=== PATIENT | female | born 1960 | race Caucasian/White ===

== ENCOUNTER → 2019-05-29 | Outpatient (CLI) | payer OTHER ==
[2019-05-29 07:31] LABS: Urine WBC None Seen /hpf (0 - 5)
[2019-05-29 07:35] LABS: Basophils # (auto) 0 uL; Basophils % (auto) 0.8 % (0.0-2.0); Eosinophils # (auto) 0.2 uL; Eosinophils % (auto) 5.3 % (0.0-7.0); Hematocrit 40.2 % (36.0-46.0); Hemoglobin 13.1 g/dL (12.2-16.2); Lymphocytes # (auto) 1.2 uL; Lymphocytes % (auto) 25.8 % (10.0-50.0); Mean Corpuscular Hemoglobin 27.9 pg (28.0-32.0); Mean Corpuscular Hgb Conc. 32.5 g/dL (32.0-36.0); Mean Corpuscular Volume 85.7 fL (80.0-100.0); Monocytes # (auto) 0.4 uL; Monocytes % (auto) 8.7 % (0.0-12.0); Neutrophils # (auto) 2.7 uL; Neutrophils % (auto) 59.4 % (37.0-80.0); Nucleated Red Blood Cells % 0.1 %; Platelet Count (auto) 224 10^3/uL (140-450); Red Blood Cells 4.69 10^6/uL (4.0-5.20); Red Cell Distribution Width 16.4 % (11.8-14.3); White Blood Cell 4.6 10^3/uL (4.4-10.8)
[2019-05-29 07:58] LABS: Urine Bacteria NONE SEEN /hpf (None Seen); Urine Blood Negative /uL (Negative)
[2019-05-29 08:36] LABS: Albumin 3.7 g/dL (3.4-5.0); BUN/Creatinine Ratio 16.3; Calcium 8.8 mg/dL (8.5-10.1); Potassium 3.7 mmol/L (3.5-5.1)
[2019-05-29 08:38] LABS: Bilirubin, Total 0.4 mg/dL (0.2-1.0); Total Protein 7.5 g/dL (6.4-8.2)
== END | disposition home or self-care (01) ==
LOC: LAB 07:11
PROVIDERS: ATTEND Internal Medicine Nephrology
DX: I10 Essential (primary) hypertension (principal); I27.20 Pulmonary hypertension, unspecified
CPT/HCPCS: 36415; 80053; 80061; 81001; 84439; 84443; 85025

== ENCOUNTER 2019-07-20 11:38 | Emergency (ER) | payer OTHER ==
[~2019-07-20] VITALS: Ht 160 cm; Wt 63.5 kg
[2019-07-20] MEDS ORDERED: ONDANSETRON HCL 4 MG/2 ML VIAL IV ONE (12:45)
[2019-07-20] MEDS ORDERED: MORPHINE SULF INJ 2 MG/ML SYRINGE 1ML IV ONE ×2 (12:45→16:00)
[2019-07-20 13:44] LABS: Basophils # (auto) 0 uL; Basophils % (auto) 0.3 % (0.0-2.0); Eosinophils # (auto) 0.1 uL; Eosinophils % (auto) 1.4 % (0.0-7.0); Hematocrit 30.8 % (36.0-46.0); Hemoglobin 10.3 g/dL (12.2-16.2); Lymphocytes # (auto) 0.6 uL; Lymphocytes % (auto) 10.5 % (10.0-50.0); Mean Corpuscular Hemoglobin 29.3 pg (28.0-32.0); Mean Corpuscular Hgb Conc. 33.5 g/dL (32.0-36.0); Mean Corpuscular Volume 87.6 fL (80.0-100.0); Monocytes # (auto) 0.5 uL; Monocytes % (auto) 8.4 % (0.0-12.0); Neutrophils # (auto) 4.7 uL; Neutrophils % (auto) 79.4 % (37.0-80.0); Platelet Count (auto) 254 10^3/uL (140-450); Red Blood Cells 3.51 10^6/uL (4.0-5.20); Red Cell Distribution Width 16.3 % (11.8-14.3); White Blood Cell 5.9 10^3/uL (4.4-10.8)
[2019-07-20 14:00] LABS: Calcium 8.2 mg/dL (8.5-10.1); Magnesium 2.2 mg/dL (1.6-2.6); Potassium 3.8 mmol/L (3.5-5.1)
[2019-07-20 14:03] LABS: BUN/Creatinine Ratio 12.3; Bilirubin, Total 0.4 mg/dL (0.2-1.0); Total Protein 6.6 g/dL (6.4-8.2)
[2019-07-20 15:52] LABS: Urine Bacteria NONE SEEN /hpf (None Seen); Urine Blood Negative /uL (Negative); Urine Specific Gravity 1.013 (1.001-1.035); Urine WBC 1 /hpf (0 - 5)
[2019-07-20] MEDS ORDERED: PROMETHAZINE HCL 25 MG/ML 1ML IV ONE (16:00)
[2019-07-20 20:00] VITALS: BP 83/45
== END 2019-07-20 20:29 | disposition home or self-care (01) ==
LOC: ER 11:38
DX: M62.830 Muscle spasm of back (principal); N83.8 Other noninflammatory disorders of ovary, fallopian tube and broad ligament; I27.20 Pulmonary hypertension, unspecified
CPT/HCPCS: 36415; 71045; 72148; 74176; 80053; 81001; 83735; 85025; 94761; 96374; 96375; 96376; 99284; J2270; J2405; J2550

== ENCOUNTER → 2019-07-24 | Outpatient (CLI) | payer OTHER ==
[2019-07-24 15:57] LABS: Basophils # (auto) 0 uL; Basophils % (auto) 0.3 % (0.0-2.0); Eosinophils # (auto) 0.1 uL; Eosinophils % (auto) 1.1 % (0.0-7.0); Hematocrit 33.4 % (36.0-46.0); Hemoglobin 10.9 g/dL (12.2-16.2); Lymphocytes # (auto) 0.8 uL; Lymphocytes % (auto) 12.8 % (10.0-50.0); Mean Corpuscular Hemoglobin 28.9 pg (28.0-32.0); Mean Corpuscular Hgb Conc. 32.8 g/dL (32.0-36.0); Mean Corpuscular Volume 88.1 fL (80.0-100.0); Monocytes # (auto) 0.5 uL; Monocytes % (auto) 7.8 % (0.0-12.0); Neutrophils # (auto) 4.6 uL; Platelet Count (auto) 318 10^3/uL (140-450); Red Blood Cells 3.79 10^6/uL (4.0-5.20); Red Cell Distribution Width 16.4 % (11.8-14.3)
[2019-07-24 16:20] LABS: Albumin 3.3 g/dL (3.4-5.0); Calcium 8.8 mg/dL (8.5-10.1); Potassium 3.8 mmol/L (3.5-5.1)
[2019-07-24 16:28] LABS: BUN/Creatinine Ratio 11.1; Bilirubin, Total 0.4 mg/dL (0.2-1.0); Total Protein 7.4 g/dL (6.4-8.2)
== END | disposition home or self-care (01) ==
LOC: LAB 15:24
PROVIDERS: ATTEND Internal Medicine Hematology & Oncology
DX: N83.8 Other noninflammatory disorders of ovary, fallopian tube and broad ligament (principal)
CPT/HCPCS: 36415; 80053; 85025; 86304

== ENCOUNTER → 2019-08-24 | Outpatient (CLI) | payer OTHER ==
[2019-08-24 11:00] LABS: Basophils % (manual) 0 (0.0-2.0); Blast Cells 0; Metamyelocytes % 0; Myelocytes % 0; Promyelocytes % 0; Reactive Lymphocytes 0
[2019-08-24 11:18] LABS: Hematocrit 34.6 % (36.0-46.0); Hemoglobin 11.3 g/dL (12.2-16.2); Mean Corpuscular Hgb Conc. 32.7 g/dL (32.0-36.0); Mean Corpuscular Volume 85.5 fL (80.0-100.0); Platelet Count (auto) 321 10^3/uL (140-450); Red Blood Cells 4.04 10^6/uL (4.0-5.20); Red Cell Distribution Width 15.4 % (11.8-14.3); White Blood Cell 4.3 10^3/uL (4.4-10.8)
[2019-08-24 11:42] LABS: Albumin 3.2 g/dL (3.4-5.0); Potassium 4.3 mmol/L (3.5-5.1)
[2019-08-24 11:45] LABS: BUN/Creatinine Ratio 9.7; Bilirubin, Total 0.6 mg/dL (0.2-1.0); Total Protein 7.3 g/dL (6.4-8.2)
[2019-08-24 11:47] LABS: Urine Bacteria NONE SEEN /hpf (None Seen); Urine Blood Negative /uL (Negative); Urine Mucus FEW (None Seen); Urine Specific Gravity 1.019 (1.001-1.035); Urine WBC 1 /hpf (0 - 5)
[2019-08-24 13:08] LABS: Band Neutrophils % (manual) 1; Lymphocytes % (manual) 23 (10.0-50.0); Monocytes % (manual) 6 (0-12)
[2019-08-24 13:09] LABS: Eosinophils % (manual) 2 (0-7)
== END | disposition home or self-care (01) ==
LOC: LAB 10:07
PROVIDERS: ATTEND Internal Medicine Nephrology
DX: R50.9 Fever, unspecified (principal); R00.0 Tachycardia, unspecified
CPT/HCPCS: 36415; 80053; 81001; 83605; 85007; 85025; 85027; 87040; 87086

== ENCOUNTER → 2019-10-01 | Outpatient (CLI) | payer OTHER ==
[~2019-10-01] MED LIST: AMLO5TAB15 PO; ESOM40CA39 PO; MACI1TAB2 PO; ROSU20TA14 PO; TADA5TAB11 PO
[2019-10-01 08:10] LABS: Basophils # (auto) 0 uL; Basophils % (auto) 0.3 % (0.0-2.0); Eosinophils # (auto) 0.1 uL; Eosinophils % (auto) 1.7 % (0.0-7.0); Hematocrit 34.1 % (36.0-46.0); Hemoglobin 11.1 g/dL (12.2-16.2); Lymphocytes % (auto) 20.8 % (10.0-50.0); Mean Corpuscular Hemoglobin 27.6 pg (28.0-32.0); Mean Corpuscular Hgb Conc. 32.6 g/dL (32.0-36.0); Mean Corpuscular Volume 84.5 fL (80.0-100.0); Monocytes # (auto) 0.5 uL; Monocytes % (auto) 10.1 % (0.0-12.0); Neutrophils # (auto) 3.2 uL; Neutrophils % (auto) 67.1 % (37.0-80.0); Platelet Count (auto) 211 10^3/uL (140-450); Red Blood Cells 4.03 10^6/uL (4.0-5.20); Red Cell Distribution Width 16.4 % (11.8-14.3); White Blood Cell 4.8 10^3/uL (4.4-10.8)
[2019-10-01 09:26] LABS: Potassium 3.6 mmol/L (3.5-5.1)
[2019-10-01 09:36] LABS: Albumin 3.3 g/dL (3.4-5.0); BUN/Creatinine Ratio 10.3; Bilirubin, Total 0.4 mg/dL (0.2-1.0); Calcium 9.5 mg/dL (8.5-10.1); Total Protein 7.8 g/dL (6.4-8.2)
== END | disposition home or self-care (01) ==
LOC: LAB 07:37
PROVIDERS: ATTEND Internal Medicine Nephrology
DX: R65.10 Systemic inflammatory response syndrome (SIRS) of non-infectious origin without acute organ dysfunction (principal)
CPT/HCPCS: 36415; 80053; 85025; 87040

== ENCOUNTER 2019-10-02 18:22 | Emergency (ER) | payer OTHER ==
[~2019-10-02] VITALS: Ht 160 cm; Wt 62.1 kg
[~2019-10-02 18:22] MED LIST changes: -AMLO5TAB15 PO
[2019-10-02] MEDS ORDERED: SODIUM CHLORIDE 0.9% 1,000 ML IV ONE ×2 (19:21)
[2019-10-02 19:25] LABS: Basophils # (auto) 0 uL; Basophils % (auto) 0.5 % (0.0-2.0); Eosinophils # (auto) 0.1 uL; Eosinophils % (auto) 1.3 % (0.0-7.0); Hematocrit 34.1 % (36.0-46.0); Lymphocytes # (auto) 1.1 uL; Lymphocytes % (auto) 15.5 % (10.0-50.0); Mean Corpuscular Hemoglobin 27.4 pg (28.0-32.0); Mean Corpuscular Hgb Conc. 32.4 g/dL (32.0-36.0); Mean Corpuscular Volume 84.5 fL (80.0-100.0); Monocytes # (auto) 0.6 uL; Monocytes % (auto) 7.9 % (0.0-12.0); Neutrophils # (auto) 5.3 uL; Neutrophils % (auto) 74.8 % (37.0-80.0); Platelet Count (auto) 264 10^3/uL (140-450); Red Blood Cells 4.03 10^6/uL (4.0-5.20); Red Cell Distribution Width 16.9 % (11.8-14.3); White Blood Cell 7.1 10^3/uL (4.4-10.8)
[2019-10-02] MEDS ORDERED: PIPERACILLIN-TAZOB 3.375GM 100 ML IV ONE (19:30)
[2019-10-02 19:42] LABS: Albumin 3.3 g/dL (3.4-5.0); Potassium 3.2 mmol/L (3.5-5.1)
[2019-10-02 19:44] LABS: BUN/Creatinine Ratio 14.1
[2019-10-02 19:46] LABS: Bilirubin, Total 0.4 mg/dL (0.2-1.0); Total Protein 7.7 g/dL (6.4-8.2)
[2019-10-02] MEDS ORDERED: POTASSIUM EFFERVESENT TAB 25 MEQ PO ONE ×2 (21:00→21:15)
[2019-10-02] MEDS ORDERED: POTASSIUM EFFERVESENT TAB 25 MEQ ONE ×2 (21:08)
[2019-10-02 21:14] VITALS: BP 112/74
[2019-10-04] MEDS ORDERED: AMLO5TAB15 PO (05:09)
[2019-10-04] MEDS ORDERED: MACI1TAB2 PO (05:09)
[2019-10-04] MEDS ORDERED: TADA5TAB11 PO (05:11)
== END 2019-10-02 21:30 | disposition home or self-care (01) ==
LOC: ER 18:22
DX: E87.6 Hypokalemia (principal); E86.0 Dehydration; E46 Unspecified protein-calorie malnutrition; I10 Essential (primary) hypertension
CPT/HCPCS: 36415; 71046; 80053; 83605; 85025; 87040

== ENCOUNTER → 2019-11-22 | Outpatient (CLI) | payer OTHER ==
[~2019-11-22] MED LIST changes: +AMLO5TAB15 PO; +FERR200T3 PO
== END | disposition home or self-care (01) ==
LOC: XYW 07:32
PROVIDERS: ATTEND Internal Medicine
DX: I27.0 Primary pulmonary hypertension (principal)
CPT/HCPCS: 93306

== ENCOUNTER → 2019-11-27 | Outpatient (CLI) | payer OTHER ==
[2019-11-27 14:52] LABS: Basophils # (auto) 0.1 10 ^3/uL (0-0.2); Eosinophils # (auto) 0.2 10 ^3/uL (0-0.8); Lymphocytes # (auto) 1.5 10 ^3/uL (0.4-5.4); Mean Corpuscular Volume 82.8 fL (80.0-100.0); White Blood Cell 8.2 10^3/uL (4.4-10.8)
[2019-11-27 14:54] LABS: Basophils % (auto) 0.8 % (0.0-2.0); Eosinophils % (auto) 2.2 % (0.0-7.0); Hematocrit 36.5 % (36.0-46.0); Hemoglobin 11.9 g/dL (12.2-16.2); Lymphocytes % (auto) 18.7 % (10.0-50.0); Mean Corpuscular Hemoglobin 27.1 pg (28.0-32.0); Mean Corpuscular Hgb Conc. 32.8 g/dL (32.0-36.0); Monocytes # (auto) 0.7 10 ^3/uL (0-1.3); Monocytes % (auto) 8.7 % (0.0-12.0); Neutrophils # (auto) 5.7 10 ^3/uL (1.6-8.6); Neutrophils % (auto) 69.6 % (37.0-80.0); Platelet Count (auto) 307 10^3/uL (140-450); Red Cell Distribution Width 16.8 % (11.8-14.3)
[2019-11-27 15:12] LABS: Albumin 3.9 g/dL (3.4-5.0); BUN/Creatinine Ratio 16.3; Calcium 9.1 mg/dL (8.5-10.1); Potassium 3.3 mmol/L (3.5-5.1)
[2019-11-27 15:15] LABS: Bilirubin, Total 0.4 mg/dL (0.2-1.0)
== END | disposition home or self-care (01) ==
LOC: LAB 14:30
PROVIDERS: ATTEND Internal Medicine Nephrology
DX: I36.8 Other nonrheumatic tricuspid valve disorders (principal)
CPT/HCPCS: 36415; 80053; 85025; 87040

== ENCOUNTER → 2020-01-28 | Outpatient (CLI) | payer OTHER | END | disposition home or self-care (01) | LOC: XY 10:56 | PROVIDERS: ATTEND Internal Medicine Nephrology | DX: I70.203 Unspecified atherosclerosis of native arteries of extremities, bilateral legs (principal) | CPT/HCPCS: 93925 ==

== ENCOUNTER → 2022-08-10 | Day surgery (SDC) | payer OTHER ==
[2022-08-06 14:47] LABS: Basophils # (auto) 0.1 10 ^3/uL (0-0.2); Eosinophils # (auto) 0.1 10 ^3/uL (0-0.8); Hemoglobin 13.9 g/dL (12.2-16.2); Mean Corpuscular Hemoglobin 26.5 pg (28.0-32.0); Mean Corpuscular Hgb Conc. 31.9 g/dL (32.0-36.0); Neutrophils # (auto) 3.1 10 ^3/uL (1.6-8.6)
[2022-08-06 14:49] LABS: Eosinophils % (auto) 1.8 % (0.0-7.0); Hematocrit 43.5 % (36.0-46.0); Lymphocytes # (auto) 2.1 10 ^3/uL (0.4-5.4); Lymphocytes % (auto) 33.3 % (10.0-50.0); Mean Corpuscular Volume 83.1 fL (80.0-100.0); Monocytes # (auto) 0.9 10 ^3/uL (0-1.3); Monocytes % (auto) 13.8 % (0.0-12.0); Neutrophils % (auto) 50.1 % (37.0-80.0); Red Blood Cells 5.23 10^6/uL (4.0-5.20); Red Cell Distribution Width 18.6 % (11.8-14.3); White Blood Cell 6.2 10^3/uL (4.4-10.8)
[2022-08-06 14:54] LABS: INR 1.08 (0.9-1.15)
[2022-08-06 15:20] LABS: Albumin 4.2 g/dL (3.4-5.0); Potassium 3.7 mmol/L (3.5-5.1)
[2022-08-06 15:25] LABS: BUN/Creatinine Ratio 16.3; Bilirubin, Total 0.7 mg/dL (0.2-1.0); Calcium 9.5 mg/dL (8.5-10.1); Total Protein 8.4 g/dL (6.4-8.2)
[~2022-08-10] VITALS: Ht 160 cm; Wt 64.9 kg
[~2022-08-10] MED LIST changes: +AMLO-489 PO; -AMLO5TAB15 PO; +ASPI81CH59 PO; +FURO1TAB33 PO; +MULT-1018 OR; +POTA1TAB61 PO; +SODIUM CHLORIDE LOCK 10 ML ONE
[2022-08-10] MEDS: diphenhdrAMINE HCL 50 MG/1 ML VL ONE ×2 (11:15→11:18)
[2022-08-10] MEDS: fentaNYL CITRATE 100 MCG/2 ML VL ONE ×3 (11:15→11:25)
[2022-08-10] MEDS: MIDAZOLAM HCL 5 MG/ML-1ML VIAL ONE ×3 (11:15→11:25)
[2022-08-10 12:16] VITALS: BP 108/74
== END | disposition home or self-care (01) ==
LOC: GI 09:44
PROVIDERS: ATTEND Internal Medicine Gastroenterology
DX: R19.4 Change in bowel habit (principal); Z80.0 Family history of malignant neoplasm of digestive organs; K64.0 First degree hemorrhoids; K57.30 Diverticulosis of large intestine without perforation or abscess without bleeding; D12.3 Benign neoplasm of transverse colon; Z20.822 Contact with and (suspected) exposure to COVID-19
CPT/HCPCS: 36415; 45380; 45385; 80053; 85025; 85610; 85730; 88305; A4648; J1200; J2250; J3010; J7030; U0003

== ENCOUNTER 2025-08-16 10:00 | Inpatient (IN) | payer OTHER ==
[~2025-08-16] VITALS: Ht 160 cm; Wt 66.6 kg
[2025-08-16] VITALS (9 sets, daily range): BP systolic 110–138; BP diastolic 73–87; PULSE 91–102; RESP 17–23; TEMP 97.4–98.4; O2SAT 92–95
[~2025-08-16 10:00] MED LIST changes: -AMLO-489 PO; +AMLO1TAB22 PO; +POTA-215 PO; -POTA1TAB61 PO; -SODIUM CHLORIDE LOCK 10 ML ONE
--- NOTE | 2025-08-16 10:22 | ECG ---
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
--- NOTE | 2025-08-16 10:35 | ED.PDOC ---
SOB-HPI HPI Comments 65-year-old female with primary history of pulmonary hypertension, and to the ED for chief complaint of shortness of breath associated with fevers, productive cough and clear phlegm sputum that started 2-3 days ago. Patient reports symptoms have worsened today and developed right-sided chest pain that is nonradiating, constant and described as achy. Patient present with a saturation level of 87% on room air, and was placed on 6 L of nasal cannula with a saturation improvement to 94%. Patient states shortness of breath worsens on exertion and when lying flat. She denies any leg swelling, nausea, diarrhea, abdominal pain, or back pain. Chief Complaint: Shortness of Breath Time Seen by MD: 10:28 Primary Care Provider: ameena Ramos notes: Nurses Notes, Medications, Allergies Information Source: Patient Mode of Arrival: Ambulatory Severity: Moderate Timing: Days (2-3) Context: At Rest PE Risk Factors: None History of: Other Modifying Factors: Nothing Associated Signs and Symptoms: Fever, Cough, Nasal Congestion If cough with SOB: Productive, Clear Past Medical History PAST MEDICAL HISTORY: HTN Surgical History: APPLICATION SECURITY ENGINEER History: No Pertinent APPLICATION SECURITY ENGINEER History Family History Family History: Family hx of Cancer, Family hx of HTN Family History (Other): Father had pancreatic cancer Mother has colon cancer Social History Smoker: Non-Smoker Alcohol: Rarely Drugs: Denies Drug Use Lives In: Home Constitutional: reports: fever; denies: chills, diaphoresis, fatigue, malaise, sweats, weakness, others EENTM: denies: blurred vision, double vision, ear bleeding, ear discharge, ear drainage, ear pain, ear ringing, eye pain, eye redness, hearing loss, mouth pain, mouth swelling, nasal discharge, nose bleeding, nose congestion, nose pain, photophobia, tearing, throat pain, throat swelling, voice changes, others Respiratory: reports: cough, SOB at rest, shortness of breath, SOB with excertion; denies: hemoptysis, orthopnea, stridor, wheezing, others Cardiovascular: denies: chest pain, dizzy spells, diaphoresis, Dyspnea on ex ertion, edema, irregular heart beat, left arm pain, lightheadedness, palpitations, PND, syncope, others Gastrointestinal: denies: abdomen distended, abdominal pain, blood streaked bowels, constipated, diarrhea, dysphagia, difficulty swallowing, hematemesis, melena, nausea, poor appetite, poor fluid intake, rectal bleeding, rectal pain, vomiting, others Genitourinary: denies: abnormal vagina bleeding, burning, dyspareunia, dysuria, flank pain, frequency, hematuria, incontinence, pain, , vagina discharge, urgency, others Neurological: denies: dizziness, fainting, headache, left sided numbness, left sided weakness, numbness, paresthesia, pre-existing deficit, right sided numbness, right sided weakness, seizure, speech problems, tingling, tremors, weakness, others Musculoskeletal: denies: back pain, gout, joint pain, joint swelling, muscle pain, muscle stiffness, neck pain, others Integumetry: denies: bruises, change in color, change in hair/nails, dryness, laceration, lesions, lumps, rash, wounds, others Allergic/Immunocompromised: denies: Difficulty Healing, Frequent Infections, Hives, Itching, others Hematologic/Lymphatic: denies: anemia, blood clots, easy bleeding, easy bruising, swollen glands, others Endocrine: denies: excessive hunger, excessive sweating, excessive thirst, excessive urination, flushing, intolerance to cold, intolerance to heat, unexplained weight gain, unexplained weight loss, others Psychiatric: denies: anxiety, bipolar disorder, depression, hopeless, panic disorder, schizophrenia, sleepless, suicidal, others All Other Systems: Reviewed and Negative Physical Exam General Appearance: Severe Distress HEENT: Normal ENT Inspection, Pharynx Normal, TMs Normal Neck: Full Range of Motion, Non-Tender, Normal, Normal Inspection Respiratory: Accessory Muscle Use, Respiratory Distress, Wheezing Cardiovascular: No Edema, No JVD, No Murmur, No Gallop, Normal Peripheral Pulses, Regular Rate/Rhythm Breast Exam: Deferred Gastrointestinal: No Organomegaly, Non Tender, No Pulsatile Mass, Normal Bowel Sounds, Soft Genitalia: Deferred Pelvic: Deferred Rectal: Deferred Extremities: No calf tenderness, No pedal edema Musculoskeletal : Apperance: Normal Neurologic: Alert, No Motor Deficits, No Sensory Deficits Cerebellar Function: NOT DONE Reflexes: NOT DONE Skin: Dry, Normal Color, Warm Peripheral Pulses: 3+ Radial (R), 3+ Radial (L) Lymphatic: No Adenopathy Was a procedure done? Was a procedure done?: No Differential Dx Differential Diagnosis: Anxiety, Asthma, Bronchitis, CHF, COPD, Hypertension, Hyperventilation, Respiratory Distress, URI X-Ray, Labs, Meds, VS Vital Signs Date Time Temp Pulse Resp B/P (MAP) Pulse Ox O2 Delivery O2 Flow Rate FiO2 08/16/25 11:46 20 95 Nasal Cannula* 6 44 08/16/25 11:39 136/77 08/16/25 10:50 94 Nasal Cannula* 6 44 08/16/25 10:33 101 23 94 Nasal Cannula* 6 44 08/16/25 10:33 98.4 101 23 138/87 (104) 94 98.4 08/16/25 10:14 104 08/16/25 10:04 98.0 111 24 155/92 88 98.0 Lab Test 08/16/25 10:46 08/16/25 10:45 08/16/25 10:41 Range/Units Influenza Type A Antigen Negative Negative Influenza Type B Antigen Negative Negative SARS-CoV-2 Antigen (Rapid) Negative NEGATIVE White Blood Count 7.7 4.4-10.8 10^3/uL Red Blood Count 4.67 4.0-5.20 10^6/uL Hemoglobin 14.6 12.2-16.2 g/dL Hematocrit 43.0 36.0-46.0 % Mean Corpuscular Volume 92.0 80.0-100.0 fL Mean Corpuscular Hemoglobin 31.3 28.0-32.0 pg Mean Corpuscular Hemoglobin Concent 34.1 32.0-36.0 g/dL Red Cell Distribution Width 16.0 H 11.8-14.3 % Platelet Count 213 140-450 10^3/uL Mean Platelet Volume 7.5 6.9-10.8 fL Neutrophils (%) (Auto) 76.3 37.0-80.0 % Lymphocytes (%) (Auto) 10.7 10.0-50.0 % Monocytes (%) (Auto) 12.4 H 0.0-12.0 % Eosinophils (%) (Auto) 0.1 0.0-7.0 % Basophils (%) (Auto) 0.5 0.0-2.0 % Neutrophils # (Auto) 5.9 1.6-8.6 10 ^3/uL Lymphocytes # (Auto) 0.8 0.4-5.4 10 ^3/uL Monocytes # (Auto) 1.0 0-1.3 10 ^3/uL Eosinophils # (Auto) 0 0-0.8 10 ^3/uL Basophils # (Auto) 0 0-0.2 10 ^3/uL Nucleated Red Blood Cells 0.0 % Sodium Level 136 136-145 mmol/L Potassium Level 3.6 3.5-5.1 mmol/L Chloride Level 102 98-107 mmol/L Carbon Dioxide Level 18 L 20-31 mmol/L Anion Gap 16 H 5-15 Blood Urea Nitrogen 6 L 9-23 mg/dL Creatinine 0.66 0.550-1.02 mg/dL Glomerular Filtration Rate Calc 98 >90 mL/min BUN/Creatinine Ratio 9.1 L 10.0-20.0 Serum Glucose 104 74-106 mg/dL Lactic Acid Level 1.3 0.4-2.0 mmol/L Calcium Level 9.2 8.7-10.4 mg/dL Total Bilirubin 1.6 H 0.2-1.0 mg/dL Aspartate Amino Transferase (AST) 30 13-40 U/L Alanine Aminotransferase (ALT) 23 7-40 U/L Alkaline Phosphatase 167 H 46-116 U/L Troponin I High Sensitivity 10 </=34 ng/L Total Protein 6.6 5.7-8.2 g/dL Albumin 4.1 3.2-4.8 g/dL Current Medications Medications (Trade) Dose Ordered Sig/Solomon Route Start Time Stop Time Status Last Admin Methylprednisolone Sodium Succinate (Solu Medrol) 125 mg ONCE ONCE IV 08/16/25 11:30 08/16/25 11:31 DC 08/16/25 11:40 Furosemide (Lasix Injection) 40 mg ONCE ONCE IV 08/16/25 11:30 08/16/25 11:31 DC 08/16/25 11:39 Magnesium Sulfate/ Dextrose 100 ml @ 100 mls/hr ONCE ONCE IV 08/16/25 11:30 08/16/25 12:29 DC 08/16/25 11:38 Albuterol (Ventolin Medneb) 5 mg ONCE ONCE NEB 08/16/25 11:30 08/16/25 11:31 DC 08/16/25 11:46 Ipratropium Galt (Atrovent Medneb) 0.5 mg ONCE ONCE NEB 08/16/25 11:30 08/16/25 11:31 DC 08/16/25 11:45 Patient alert. Came in because of shortness a breath. Has been here before. Vitals stable. Answering questions. Placed on oxygen. Reviewed her previous visit. Establish intravenous access. Was given steroid. Was given Lasix pain Was given breathing treatment. Was given magnesium. Explained to the patient. Continue monitoring. Time of 1ST Reevaluation: 10:35 Reevaluation 1ST: Unchanged Patient Education/Counseling: Diagnosis, Treatment, Prognosis Family Education/Counseling: No Family Present SEPSIS Sepsis Screen Date sepsis recognized/suspect: Aug 16, 2025 Time Sepsis recognized/suspect: 100 Recent Procedure: No On Antibiotic Therapy: No Respiratory Rate >20: Yes Heart Rate >90: Yes Temp<36 C (96.8 F) or >38.3 C: No SBP <90 or MAP <65 mmHG: No New Acute Mental Status Change: No Is the patient on CPAP, BIPAP,: No Physician Orders Chest Portable (08/16/25 10:31) Blood Culture (08/16/25 10:38) Vital Signs Date Time Temp Pulse Resp B/P (MAP) Pulse Ox O2 Delivery O2 Flow Rate FiO2 08/16/25 11:46 20 95 Nasal Cannula* 6 44 08/16/25 11:39 136/77 08/16/25 10:50 94 Nasal Cannula* 6 44 08/16/25 10:33 101 23 94 Nasal Cannula* 6 44 08/16/25 10:33 98.4 101 23 138/87 (104) 94 98.4 08/16/25 10:14 104 08/16/25 10:04 98.0 111 24 155/92 88 98.0 Laboratory Tests Test 08/16/25 10:41 Lactic Acid Level 1.3 mmol/L (0.4-2.0) White Blood Count 7.7 10^3/uL (4.4-10.8) Medications Medications Dose Ordered Sig/Solomon Route Start Time Stop Time Status Last Admin Dose Admin Albuterol 5 mg ONCE ONCE NEB 08/16/25 11:30 08/16/25 11:31 DC 08/16/25 11:46 Furosemide 40 mg ONCE ONCE IV 08/16/25 11:30 08/16/25 11:31 DC 08/16/25 11:39 Ipratropium Galt 0.5 mg ONCE ONCE NEB 08/16/25 11:30 08/16/25 11:31 DC 08/16/25 11:45 Magnesium Sulfate/ Dextrose 100 ml @ 100 mls/hr ONCE ONCE IV 08/16/25 11:30 08/16/25 12:29 DC 08/16/25 11:38 Methylprednisolone Sodium Succinate 125 mg ONCE ONCE IV 08/16/25 11:30 08/16/25 11:31 DC 08/16/25 11:40 Departure 1 Departure Time of Disposition: 12:55 Impression: Primary Impression: Acute respiratory failure Qualified Codes: J96.01 - Acute respiratory failure with hypoxia Additional Impression: Pneumonitis Disposition: ADMITTED INPATIENT Admit to: Med Surg Condition: Guarded Critical Care Note Critical Care Time?: Yes (90 min-critical care time only) Stability Stability form required: No Heart Score Heart Score: Heart Score Response (Comments) Value History Slightly Suspicious 0 EKG Normal 0 Age 45-64 1 Risk Factors >3 or Hx ASHD 2 Troponin Normal limit 0 Total 3 I personally scribed for LUCY ACOSTA MD ([email or web address]) on 08/16/25 at 10:35. Electronically submitted by Kasey Grace ([facility]). LUCY ACOSTA MD Aug 16, 2025 10:35
[2025-08-16 10:59] LABS: Hematocrit 43.0 % (36.0-46.0); Hemoglobin 14.6 g/dL (12.2-16.2); Mean Corpuscular Hemoglobin 31.3 pg (28.0-32.0); Mean Corpuscular Volume 92.0 fL (80.0-100.0); Nucleated Red Blood Cells % 0.0 %
--- NOTE | 2025-08-16 11:08 | DVH ---
XY CHEST PORTABLE, HISTORY: shortness of breath COMPARISON: None None TECHNICAL DATA: 1 view of the chest was obtained. FINDINGS: Lines and tubes: None Cardiomediastinal silhouette: normal Pulmonary vasculature: normal Lung expansion: Right basilar airspace opacity could be pneumonia. Lung airspace: normal Lung interstitium: normal Pleura: normal Pneumothorax: no Bones: Unremarkable Other: no IMPRESSION: Right basilar airspace opacity could be pneumonia.
[2025-08-16 11:24] LABS: Alanine Aminotransferase 23 U/L (7-40); Albumin 4.1 g/dL (3.2-4.8); Anion Gap 16 (5-15); BUN/Creatinine Ratio 9.1 (10.0-20.0); Calcium 9.2 mg/dL (8.7-10.4); Chloride 102 mmol/L (98-107); Glucose 104 mg/dL (74-106); Potassium 3.6 mmol/L (3.5-5.1); Sodium 136 mmol/L (136-145); Total Protein 6.6 g/dL (5.7-8.2)
[2025-08-16 11:34] LABS: Alkaline Phosphatase 167 U/L (46-116); Bilirubin, Total 1.6 mg/dL (0.2-1.0); Blood Urea Nitrogen 6 mg/dL (9-23); Carbon Dioxide 18 mmol/L (20-31)
[2025-08-16] MEDS: MAGNESIUM SULFATE 1GM/100ML 100 ML IV ONE (11:38)
[2025-08-16] MEDS: FUROSEMIDE 40 MG/4 ML VIAL IV ONE ×2 (11:39→18:00)
[2025-08-16] MEDS: methylPREDNISolone SOD SUCC 125 MG/2 ML VL IV ONE (11:40)
[2025-08-16 11:42] LABS: COVID19 ANTIGEN SOFIA FIA NEGATIVE (NEGATIVE)
[2025-08-16] MEDS: IPRATROPIUM BROM 0.5 MG/2.5ML INH SOL NEB ONE (11:45)
[2025-08-16] MEDS: ALBUTEROL SULF 2.5 MG/0.5ML(0.5%) NEB SOLN NEB ONE (11:46)
[2025-08-16] MEDS ORDERED: ONDANSETRON HCL 4 MG/2 ML VIAL IV PRN (14:15)
[2025-08-16] MEDS ORDERED: ACETAMINOPHEN 325 MG TAB PO PRN (14:15)
[2025-08-16] MEDS ORDERED: DOCUSATE SOD 100 MG CAP PO PRN (14:15)
--- NOTE | 2025-08-16 15:03 | DVHHP2 ---
History of Present Illness Reason for Visit: Shortness of breath History of Present Illness Parul Mares is a 65-year-old female with past medical history of hypertension and pulmonary hypertension, who came to the hospital for shortness of breath. Patient states her shortness of breath began on Tuesday, but started worsening on Tuesday and with associated cough, nausea, and diarrhea. Her symptoms continued to worsen prompting her to come to the hospital. Cardiovascular: HTN Pulmonary: Other (Pulmonary hypertension) Past Surgical History: (x 1) Smoke: No ALCOHOL: rare Drugs: None Lives: with Family Domestic Violence: Neg Review of Systems Constitutional: No: Fever, Chills, Sweats, Weakness, Malaise, Other Eyes: No: Pain, Vision change, Conjunctivae inflammation, Eyelid inflammation, Other, Redness ENT: No: Ear pain, Ear discharge, Nose pain, Nose discharge, Nose congestion, Mouth pain, Mouth swelling, Throat pain, Throat swelling, Other Respiratory: Cough, Shortness of breath, SOB with excertion, Sputum (clear/white); No: Dry, Wheezing, Hemoptysis, Pleuritic Pain, Wheezing, Other Cardiovascular: No: Chest Pain, Palpitations, Orthopnea, Paroxysmal Noc. Dyspnea, Edema, Lt Headedness, Other Gastrointestinal: No: Nausea, Vomiting, Abdominal Pain, Diarrhea, Constipation, Melena, Hematochezia, Other Genitourinary: No Dysuria, No Frequency, No Incontinence, No Hematuria, No Retention, No Other Musculoskeletal: No: other, neck pain, shoulder pain, arm pain, back pain, hand pain, leg pain, foot pain Skin: No: Rash, Lesions, Jaundice, Bruising, Other Neurological: No: Weakness, Numbness, Incoordination, Change in speech, Confusion, Seizures, Other Allergies: Coded Allergies: NO KNOWN ALLERGIES (Unverified , 07/20/19) Exam Vital Signs Vital Signs Date Time Temp Pulse Resp B/P (MAP) Pulse Ox O2 Delivery O2 Flow Rate FiO2 08/16/25 14:09 86 20 119/70 (86) 92 08/16/25 11:46 Nasal Cannula* 6 44 08/16/25 10:33 98.4 98.4 General Appearance: Alert, Oriented X3, Cooperative, mild distress HEENT: Atraumatic, PERRLA Respiratory: Other (Diminshed breath sounds, worse on right) Cardiovascular: Normal S1, Normal S2, Other (ST) Abdominal: Normal bowel sounds, Soft, No tenderness, No hepatospenomegaly Extremities: No clubbing, No cyanosis, No edema, Normal pulses Skin: No rashes, No breakdown, No significant lesion Neuro: Normal gait, Normal speech, Strength at 5/5 X4 ext Psych/Mental Status: Mental status NL, Mood NL Labs/Xrays Labs Test 08/16/25 10:46 08/16/25 10:45 08/16/25 10:41 Range/Units Influenza Type A Antigen Negative Negative Influenza Type B Antigen Negative Negative SARS-CoV-2 Antigen (Rapid) Negative NEGATIVE White Blood Count 7.7 4.4-10.8 10^3/uL Red Blood Count 4.67 4.0-5.20 10^6/uL Hemoglobin 14.6 12.2-16.2 g/dL Hematocrit 43.0 36.0-46.0 % Mean Corpuscular Volume 92.0 80.0-100.0 fL Mean Corpuscular Hemoglobin 31.3 28.0-32.0 pg Mean Corpuscular Hemoglobin Concent 34.1 32.0-36.0 g/dL Red Cell Distribution Width 16.0 H 11.8-14.3 % Platelet Count 213 140-450 10^3/uL Mean Platelet Volume 7.5 6.9-10.8 fL Neutrophils (%) (Auto) 76.3 37.0-80.0 % Lymphocytes (%) (Auto) 10.7 10.0-50.0 % Monocytes (%) (Auto) 12.4 H 0.0-12.0 % Eosinophils (%) (Auto) 0.1 0.0-7.0 % Basophils (%) (Auto) 0.5 0.0-2.0 % Neutrophils # (Auto) 5.9 1.6-8.6 10 ^3/uL Lymphocytes # (Auto) 0.8 0.4-5.4 10 ^3/uL Monocytes # (Auto) 1.0 0-1.3 10 ^3/uL Eosinophils # (Auto) 0 0-0.8 10 ^3/uL Basophils # (Auto) 0 0-0.2 10 ^3/uL Nucleated Red Blood Cells 0.0 % Sodium Level 136 136-145 mmol/L Potassium Level 3.6 3.5-5.1 mmol/L Chloride Level 102 98-107 mmol/L Carbon Dioxide Level 18 L 20-31 mmol/L Anion Gap 16 H 5-15 Blood Urea Nitrogen 6 L 9-23 mg/dL Creatinine 0.66 0.550-1.02 mg/dL Glomerular Filtration Rate Calc 98 >90 mL/min BUN/Creatinine Ratio 9.1 L 10.0-20.0 Serum Glucose 104 74-106 mg/dL Lactic Acid Level 1.3 0.4-2.0 mmol/L Calcium Level 9.2 8.7-10.4 mg/dL Total Bilirubin 1.6 H 0.2-1.0 mg/dL Aspartate Amino Transferase (AST) 30 13-40 U/L Alanine Aminotransferase (ALT) 23 7-40 U/L Alkaline Phosphatase 167 H 46-116 U/L Troponin I High Sensitivity 10 </=34 ng/L Total Protein 6.6 5.7-8.2 g/dL Albumin 4.1 3.2-4.8 g/dL XY CHEST PORTABLE, FINDINGS: Lines and tubes: None Cardiomediastinal silhouette: normal Pulmonary vasculature: normal Lung expansion: Right basilar airspace opacity could be pneumonia. Lung airspace: normal Lung interstitium: normal Pleura: normal Pneumothorax: no Bones: Unremarkable Other: no IMPRESSION: Right basilar airspace opacity could be pneumonia. SEPSIS Sepsis Screen Date sepsis recognized/suspect: Aug 16, 2025 Time Sepsis recognized/suspect: 1033 Recent Procedure: No On Antibiotic Therapy: No Respiratory Rate >20: Yes Heart Rate >90: Yes Temp<36 C (96.8 F) or >38.3 C: No SBP <90 or MAP <65 mmHG: No New Acute Mental Status Change: No Is the patient on CPAP, BIPAP,: No Physician Orders Chest Portable (08/16/25 10:31) Blood Culture (08/16/25 10:38) Admit (08/16/25 14:14) Code Status (08/16/25 14:14) 2 Gm Sodium Diet (08/16/25 Dinner) Hydrocodone-Acet 5/325mg Tab ([place] 5/32 (08/16/25 14:15) Ondansetron Hcl (Zofran) (08/16/25 14:15) Docusate Sodium Capsule (Colace Capsule) (08/16/25 14:15) Complete Blood Count (08/17/25 04:00) Comprehensive Metabolic Panel (08/17/25 04:00) Condition: Serious (08/16/25 14:14) Acetaminophen Tablet (Tylenol Tablet) (08/16/25 14:15) Methylprednisolone Sod Succ (Solu Medrol (08/16/25 22:00) Ipratropium Medneb (Atrovent Medneb) (08/16/25 18:00) Albuterol Medneb (Ventolin Medneb) (08/16/25 18:00) Ceftriaxone 1gm/50ml (Rocephin) (08/17/25 09:00) Azithromycin 500mg/250ml (Zithromax 500m (08/17/25 10:00) Vital Signs Date Time Temp Pulse Resp B/P (MAP) Pulse Ox O2 Delivery O2 Flow Rate FiO2 08/16/25 14:09 86 20 119/70 (86) 92 08/16/25 11:46 20 95 Nasal Cannula* 6 44 08/16/25 11:39 136/77 08/16/25 10:50 94 Nasal Cannula* 6 44 08/16/25 10:33 101 23 94 Nasal Cannula* 6 44 08/16/25 10:33 98.4 101 23 138/87 (104) 94 98.4 08/16/25 10:14 104 08/16/25 10:04 98.0 111 24 155/92 88 98.0 Laboratory Tests Test 08/16/25 10:41 Lactic Acid Level 1.3 mmol/L (0.4-2.0) White Blood Count 7.7 10^3/uL (4.4-10.8) Medications Medications Dose Ordered Sig/Solomon Route Start Time Stop Time Status Last Admin Dose Admin Albuterol 5 mg ONCE ONCE NEB 08/16/25 11:30 08/16/25 11:31 DC 08/16/25 11:46 5 MG Furosemide 40 mg ONCE ONCE IV 08/16/25 11:30 08/16/25 11:31 DC 08/16/25 11:39 40 MG Ipratropium [place] 0.5 mg ONCE ONCE NEB 08/16/25 11:30 08/16/25 11:31 DC 08/16/25 11:45 0.5 MG Magnesium Sulfate/ Dextrose 100 ml @ 100 mls/hr ONCE ONCE IV 08/16/25 11:30 08/16/25 12:29 DC 08/16/25 11:38 100 MLS/HR Methylprednisolone Sodium Succinate 125 mg ONCE ONCE IV 08/16/25 11:30 08/16/25 11:31 DC 08/16/25 11:40 125 MG Assessment/Plan Assessment/Plan Assessment: Pneumonia, Hypomimia, Pulmonary hypertension, Hypertension, Plan: Admit to Med-Surg, IV antibiotics, IV steroids, IV Lasix, Breathing treatments, Supplemental oxygen as needed, Home medications reconciled, Plan discussed with: Patient, Spouse My Orders Orders - MARGARET IQBAL Procedure Category Date Status Time Admit ADMIT 08/16/25 Transmitted 14:14 Code Status CODE 08/16/25 Transmitted 14:14 2 Gm Sodium Diet DIET 08/16/25 Transmitted Dinner Hydrocodone-Acet PHA 08/16/25 Logged 5/325mg Tab ([place] 14:15 Ondansetron Hcl PHA 08/16/25 Logged (Zofran) 14:15 Docusate Sodium PHA 08/16/25 Logged Capsule (Colace 14:15 Complete Blood Count LAB 08/17/25 Verified 04:00 Comprehensive LAB 08/17/25 Verified Metabolic Panel 04:00 Condition: Serious CHRISTIAN 08/16/25 In Process 14:14 Acetaminophen Tablet PHA 08/16/25 Logged (Tylenol Tablet) 14:15 Methylprednisolone PHA 08/16/25 Logged Sod Succ (Solu Medrol 22:00 Ipratropium Medneb PHA 08/16/25 Logged (Atrovent Medneb) 18:00 Albuterol Medneb PHA 08/16/25 Logged (Ventolin Medneb) 18:00 Ceftriaxone 1gm/50ml PHA 08/17/25 Logged (Rocephin) 09:00 Azithromycin PHA 08/17/25 Logged 500mg/250ml 10:00 Date of Service: Aug 16, 2025 Billing Provider: MARGARET IQBAL Common Visit Codes: [id number] INP/OBS CARE (HIGH) MARGARET IQBAL Aug 16, 2025 15:03
[2025-08-16] MEDS: AZITHROMYCIN 500MG/250ML 250 ML IV SCH (15:35)
[2025-08-16] MEDS ORDERED: FURO1TAB31 PO (17:35)
[2025-08-16] MEDS ORDERED: POTA-36 PO (17:35)
[2025-08-16 17:36] LABS: Urine Protein, UAD Negative (Negative)
[2025-08-16] MEDS: POTASSIUM CHL 20 Meq TABLET PO ONE (18:33)
[2025-08-16] MEDS: IPRATROPIUM BROM 0.5 MG/2.5ML INH SOL NEB SCH (18:56)
[2025-08-16] MEDS: ALBUTEROL SULF 2.5 MG/0.5ML(0.5%) NEB SOLN NEB SCH (18:56)
[2025-08-16] MEDS: methylPREDNISolone SOD SUCC 40 MG/ML VL IV SCH (23:51)
[2025-08-16] MEDS: HYDROcodone-ACET 5/325MG TAB PO PRN (23:52)
[2025-08-17] VITALS (14 sets, daily range): BP systolic 104–137; BP diastolic 69–90; PULSE 77–113; RESP 16–22; TEMP 97.3–98.6; O2SAT 90–96
[2025-08-17 05:44] LABS: Hematocrit 40.4 % (36.0-46.0); Hemoglobin 13.4 g/dL (12.2-16.2); Mean Corpuscular Hemoglobin 30.9 pg (28.0-32.0); Mean Corpuscular Volume 93.0 fL (80.0-100.0); Nucleated Red Blood Cells % 0.1 %
[2025-08-17 06:06] LABS: Alanine Aminotransferase 15 U/L (7-40); Anion Gap 12 (5-15); BUN/Creatinine Ratio 16.7 (10.0-20.0); Blood Urea Nitrogen 11 mg/dL (9-23); Calcium 9.0 mg/dL (8.7-10.4); Carbon Dioxide 23 mmol/L (20-31); Chloride 104 mmol/L (98-107); Potassium 4.0 mmol/L (3.5-5.1); Sodium 139 mmol/L (136-145); Total Protein 6.4 g/dL (5.7-8.2)
[2025-08-17 06:07] LABS: Albumin 3.9 g/dL (3.2-4.8)
[2025-08-17 06:08] LABS: Bilirubin, Total 0.8 mg/dL (0.2-1.0)
[2025-08-17 06:13] LABS: Alkaline Phosphatase 131 U/L (46-116); Glucose 178 mg/dL (74-106)
[2025-08-17] MEDS: FUROSEMIDE 40 MG/4 ML VIAL IV SCH (10:00)
[2025-08-17] MEDS ORDERED: MORPHINE SULFATE INJ 2 MG/ml SYRG IM ONE (10:15)
[2025-08-17] MEDS: MORPHINE SULFATE INJ 2 MG/ml SYRG IV ONE (10:17)
[2025-08-17] MEDS: PANTOPRAZOLE 40 MG TAB PO SCH (10:38)
[2025-08-17] MEDS: ATORVASTATIN 20 MG TAB PO SCH (10:39)
--- NOTE | 2025-08-17 10:43 | DVHPN2 ---
Reviewed: Care Plan, H&P, Labs, Medications, Previous Orders, Radiology Changes from previous H/P or p: No Changes Eyes: No Pain, No Vision change, No Conjunctivae inflammation, No Eyelid inflammation, No Other, No Redness ENT: No Ear pain, No Ear discharge, No Nose pain, No Nose discharge, No Nose congestion, No Mouth pain, No Mouth swelling, No Throat pain, No Throat swelling, No Other Cardiovascular: No Chest Pain, No Palpitations, No Orthopnea, No Paroxysmal Noc. Dyspnea, No Edema, No Lt Headedness, No Other Respiratory: Cough; No Dry; Shortness of breath, SOB with excertion; No Wheezing, No Hemoptysis, No Pleuritic Pain; Sputum (clear/white); No Other Gastrointestinal: No Nausea, No Vomiting, No Abdominal Pain, No Diarrhea, No Constipation, No Melena, No Hematochezia, No Other Genitourinary: No Dysuria, No Frequency, No Incontinence, No Hematuria, No Retention, No Other Musculoskeletal: No other, No neck pain, No shoulder pain, No arm pain, No back pain, No hand pain, No leg pain, No foot pain Skin: No Rash, No Lesions, No Jaundice, No Bruising, No Other Objective Vitals Vital Signs Date Time Temp Pulse Resp B/P (MAP) Pulse Ox O2 Delivery O2 Flow Rate FiO2 08/17/25 09:00 97.3 113 19 137/90 (106) 93 97.3 08/17/25 07:05 Nasal Cannula 5.0 08/17/25 07:05 40 Intake/Output Intake and Output 08/17/25 07:00 Intake Total 400 ml Output Total 200 ml Balance 200 ml Intake Oral 300 ml IV Total 100 ml Output Urine Total 200 ml # Voids 2 Medications Current Medications Medications Dose Ordered Sig/Solomon Route Start Time Stop Time Status Last Admin Dose Admin Acetaminophen/ Hydrocodone Bitart 1 tab Q4HP PRN PO 08/16/25 14:15 08/17/25 09:55 1 TAB Ondansetron HCl 4 mg Q4HP PRN IV 08/16/25 14:15 Docusate Sodium 100 mg BIDPRN PRN PO 08/16/25 14:15 Acetaminophen 650 mg Q6HP PRN PO 08/16/25 14:15 Methylprednisolone Sodium Succinate 40 mg BID IV 08/16/25 22:00 08/16/25 23:51 40 MG Ipratropium [place] 0.5 mg Q6HWA [facility] 08/16/25 18:00 08/17/25 07:05 0.5 MG Albuterol 2.5 mg Q6HWA [facility] 08/16/25 18:00 08/17/25 07:05 2.5 MG Ceftriaxone Sodium 50 ml @ 100 mls/hr DAILY@09 IV 08/16/25 14:49 08/16/25 15:06 100 MLS/HR Azithromycin 250 ml @ 125 mls/hr DAILY IV 08/16/25 16:00 08/16/25 15:35 125 MLS/HR Furosemide 40 mg DAILY IV 08/17/25 10:00 Amlodipine Besylate 10 mg DAILY PO 08/17/25 10:00 Aspirin 81 mg DAILY PO 08/17/25 10:00 Pantoprazole Sodium 40 mg DAILY PO 08/17/25 10:00 Patient Own Medication 10 mg DAILY PO 08/17/25 10:00 Atorvastatin Calcium 40 mg DAILY PO 08/17/25 10:00 Patient Own Medication 40 mg DAILY PO 08/17/25 10:00 Laboratory Results Laboratory Tests 08/17/25 05:05 Chemistry Test 08/16/25 10:41 08/17/25 05:05 Albumin 4.1 g/dL (3.2-4.8) 3.9 g/dL (3.2-4.8) Calcium Level 9.2 mg/dL (8.7-10.4) 9.0 mg/dL (8.7-10.4) Total Protein 6.6 g/dL (5.7-8.2) 6.4 g/dL (5.7-8.2) LFT Test 08/16/25 10:41 08/17/25 05:05 Alanine Aminotransferase (ALT) 23 U/L (7-40) 15 U/L (7-40) Alkaline Phosphatase 167 U/L (46-116) H 131 U/L (46-116) H Aspartate Amino Transferase (AST) 30 U/L (13-40) 16 U/L (13-40) Total Bilirubin 1.6 mg/dL (0.2-1.0) H 0.8 mg/dL (0.2-1.0) Urinalysis Test 08/16/25 12:05 Urine Color Light-yellow (Yellow) Urine Clarity Clear (Clear) Urine pH 6.5 (5.0-9.0) Urine Specific [place] 1.004 (1.001-1.035) Urine Protein Negative (Negative) Urine Ketones Trace (Negative) Urine Blood Negative /uL (Negative) Urine Nitrite Negative (Negative) Urine Bilirubin Negative (Negative) Urine Urobilinogen Normal mg/dL (Negative) Urine Leukocyte Esterase Negative /uL (Negative) Urine RBC <1 /hpf (0 - 4) Urine Microscopic WBC < 1 /HPF (0-5) Urine Squamous Epithelial Cells Few /hpf (<5) Urine Bacteria None seen /hpf (None Seen) Urine Glucose Normal mg/dL (Normal) Labs and/or images reviewed: Labs reviewed by me, Image(s) reviewed by me Assessment/Plan Assessment/Plan Chest Pain rule out coronary artery disease, treatment per ACS protocol EKG shows ST depressions in the lateral leads, original troponin negative repeat troponin pending, STAT consult for Dr. Baker Severe pulmonary hypertension: Continue home medications Cialis 40 mg p.o. daily, MACITENTANIO 10 mg p.o. daily Community-acquired right lower lobe Pneumonia Gram-positive versus Gram- negative: Rocephin azithromycin albuterol Atrovent Solu-Medrol History of pulmonary hypertension Hypertension Flu test negative COVID test negative Check D-dimer Check urine drug screen Time spent 50 minutes Patient is full code Advanced care planning time 20 minutes AMMON Lugo at bedside Plan discussed with: Patient My Orders Orders - BISHOP LEIVA MD Procedure Category Date Status Time Troponin-I Hs LAB 08/17/25 Logged 11:01 Troponin-I Hs LAB 08/17/25 Logged 13:01 * Cardiology Consult CONS 08/17/25 Transmitted 10:33 Date of Service: Aug 17, 2025 Billing Provider: BISHOP LEIVA MD Common Visit Codes: [id number] INP/OBS CARE(HIGH) Secondary Visit Codes: [id number] CARE PLAN 30 MINUTES BISHOP LEIVA MD Aug 17, 2025 10:43
[2025-08-17] MEDS ORDERED: LABETALOL HCL 20 MG/4 ML VL IV ONE (10:45)
--- NOTE | 2025-08-17 10:56 | ECG ---
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
--- NOTE | 2025-08-17 11:45 | DVHINCON2 ---
Date of service: Aug 17, 2025 History of Present Illness 65 yo F with primary ? PH tx at [facility] on opsumit and adempas admitted for sob. pt has been hypoxic with cough but hasnt been sick in almost 6 years. ecg shows SR, and non specific st depressions. trops are -. pt sees [facility] cards and pulm Past Medical History reviewed Family History: FH: pancreatic cancer G8 FATHER Pancreatitis Allergies: Coded Allergies: NO KNOWN ALLERGIES (Unverified , 07/20/19) Home Meds Active Scripts Ferrous Sulfate Dried (Feosol) 200 Mg Tab, 200 MG PO DAILY for 30 Days, #30 TAB 3 Refills Prov:VERO PACHECO MD 10/09/19 Reported Medications Amlodipine Besylate (Amlodipine Besylate) 5 Mg Tab, 40 MG PO DAILY for 30 Days, MG 08/16/25 Potassium Chloride (POTASSIUM CHLORIDE CR) 10 Meq Tb, 1 TAB PO DAILY, #30 TAB 5 Refills 08/16/25 Furosemide (Lasix) 40 Mg Tab, 40 MG PO DAILY, TAB 08/16/25 Aspirin (Aspirin Low Dose) 81 Mg Chw, 81 MG PO DAILY, TAB.CHEW 08/06/22 Multiple Vitamin (Multivitamins) Tab, 1 TAB OR DAILY, TAB 08/06/22 Potassium Chloride (Klor-Con M10) 10 Meq Tab, 10 MEQ PO DAILY, TAB 08/06/22 Esomeprazole Magnesium Trihydr (Nexium) 40 Mg Cap, 40 MG PO DAILY, CAP 08/06/22 Tadalafil (Cialis) 5 Mg Tab, 40 MG PO DAILY 10/04/19 Macitentan (Opsumit) 10 Mg Tab, 10 MG PO DAILY 10/04/19 Amlodipine Besylate (Amlodipine Besylate) 5 Mg Tab, 10 MG PO DAILY, MG 10/04/19 Rosuvastatin Calcium (Crestor) 20 Mg Tab, 1 TAB PO DAILY, #30 TAB 5 Refills 08/29/19 Esomeprazole Magnesium Trihydr (Nexium) 40 Mg Cap, 1 CAP PO DAILY, #30 CAP 5 Refills 08/29/19 Discontinued Reported Medications Furosemide (Lasix) 20 Mg Tb, 20 MG PO PRN, TAB 08/06/22 Current Medications Current Medications Medications (Trade) Dose Ordered Sig/Solomon Route PRN Reason Start Time Stop Time Status Last Admin Acetaminophen/ Hydrocodone Bitart ([place] 5/325MG Tab) 1 tab Q4HP PRN PO MODERATE PAIN (4-6 PAIN SCALE) 08/16/25 14:15 08/17/25 09:55 Ondansetron HCl (Zofran) 4 mg Q4HP PRN IV NAUSEA / VOMITING 08/16/25 14:15 Docusate Sodium (Colace Capsule) 100 mg BIDPRN PRN PO FOR CONSTIPATION 08/16/25 14:15 Acetaminophen (Tylenol Tablet) 650 mg Q6HP PRN PO PAIN SCALE 1-3 OR TEMP>100.4 08/16/25 14:15 Methylprednisolone Sodium Succinate (Solu Medrol) 40 mg BID IV 08/16/25 22:00 08/17/25 10:37 Ipratropium [place] (Atrovent Medneb) 0.5 mg Q6HWA [facility] 08/16/25 18:00 08/17/25 07:05 Albuterol (Ventolin Medneb) 2.5 mg Q6HWA [facility] 08/16/25 18:00 08/17/25 07:05 Ceftriaxone Sodium 50 ml @ 100 mls/hr DAILY@09 IV 08/16/25 14:49 08/17/25 10:37 Azithromycin 250 ml @ 125 mls/hr DAILY IV 08/16/25 16:00 08/16/25 15:35 Furosemide (Lasix Injection) 40 mg DAILY IV 08/17/25 10:00 Amlodipine Besylate (Norvasc Tablet) 10 mg DAILY PO 08/17/25 10:00 08/17/25 10:39 Aspirin 81 mg DAILY PO 08/17/25 10:00 08/17/25 10:38 Pantoprazole Sodium (Protonix Tablet) 40 mg DAILY PO 08/17/25 10:00 08/17/25 10:38 Patient Own Medication 10 mg DAILY PO 08/17/25 10:00 Atorvastatin Calcium (Lipitor) 40 mg DAILY PO 08/17/25 10:00 08/17/25 10:39 Patient Own Medication 40 mg DAILY PO 08/17/25 10:00 08/17/25 10:42 DC Patient Own Medication 40 mg DAILY PO 08/17/25 10:45 08/17/25 10:55 DC Patient Own Medication 40 mg DAILY PO 08/18/25 10:00 Review of Systems +sob, no chest pain +R rib pain no edema 10 pt ros otherwise negative Vital Signs Vital Signs Date Time Temp Pulse Resp B/P (MAP) Pulse Ox O2 Delivery O2 Flow Rate FiO2 08/17/25 10:39 136/87 08/17/25 10:17 109 60 08/17/25 09:00 97.3 93 97.3 08/17/25 07:05 Nasal Cannula 5.0 08/17/25 07:05 40 Physical Exam mild distress tachypneic s1 s2 rrr diffuse rhonchi abd soft mild distention? no edema Labs/Diagnostic Data Labs Test 08/17/25 05:05 08/16/25 12:05 08/16/25 10:46 08/16/25 10:45 Range/Units White Blood Count 4.5 # 4.4-10.8 10^3/uL Red Blood Count 4.34 4.0-5.20 10^6/uL Hemoglobin 13.4 12.2-16.2 g/dL Hematocrit 40.4 36.0-46.0 % Mean Corpuscular Volume 93.0 80.0-100.0 fL Mean Corpuscular Hemoglobin 30.9 28.0-32.0 pg Mean Corpuscular Hemoglobin Concent 33.3 32.0-36.0 g/dL Red Cell Distribution Width 16.2 H 11.8-14.3 % Platelet Count 215 140-450 10^3/uL Mean Platelet Volume 7.8 6.9-10.8 fL Neutrophils (%) (Auto) 86.6 H 37.0-80.0 % Lymphocytes (%) (Auto) 8.1 L 10.0-50.0 % Monocytes (%) (Auto) 5.3 0.0-12.0 % Eosinophils (%) (Auto) 0.0 0.0-7.0 % Basophils (%) (Auto) 0.0 0.0-2.0 % Neutrophils # (Auto) 3.9 1.6-8.6 10 ^3/uL Lymphocytes # (Auto) 0.4 0.4-5.4 10 ^3/uL Monocytes # (Auto) 0.2 0-1.3 10 ^3/uL Eosinophils # (Auto) 0 0-0.8 10 ^3/uL Basophils # (Auto) 0 0-0.2 10 ^3/uL Nucleated Red Blood Cells 0.1 % Sodium Level 139 136-145 mmol/L Potassium Level 4.0 3.5-5.1 mmol/L Chloride Level 104 98-107 mmol/L Carbon Dioxide Level 23 20-31 mmol/L Anion Gap 12 5-15 Blood Urea Nitrogen 11 9-23 mg/dL Creatinine 0.66 0.550-1.02 mg/dL Glomerular Filtration Rate Calc 98 >90 mL/min BUN/Creatinine Ratio 16.7 10.0-20.0 Serum Glucose 178 H 74-106 mg/dL Calcium Level 9.0 8.7-10.4 mg/dL Total Bilirubin 0.8 0.2-1.0 mg/dL Aspartate Amino Transferase (AST) 16 13-40 U/L Alanine Aminotransferase (ALT) 15 7-40 U/L Alkaline Phosphatase 131 H 46-116 U/L Troponin I High Sensitivity 3 L </=34 ng/L Total Protein 6.4 5.7-8.2 g/dL Albumin 3.9 3.2-4.8 g/dL Urine Color Light-yellow Yellow Urine Clarity Clear Clear Urine pH 6.5 5.0-9.0 Urine Specific [place] 1.004 1.001-1.035 Urine Protein Negative Negative Urine Ketones Trace Negative Urine Blood Negative Negative /uL Urine Nitrite Negative Negative Urine Bilirubin Negative Negative Urine Urobilinogen Normal Negative mg/dL Urine Leukocyte Esterase Negative Negative /uL Urine RBC <1 0 - 4 /hpf Urine Microscopic WBC < 1 0-5 /HPF Urine Squamous Epithelial Cells Few <5 /hpf Urine Bacteria None seen None Seen /hpf Urine Glucose Normal Normal mg/dL Influenza Type A Antigen Negative Negative Influenza Type B Antigen Negative Negative SARS-CoV-2 Antigen (Rapid) Negative NEGATIVE Test 08/16/25 10:41 Range/Units Lactic Acid Level 1.3 0.4-2.0 mmol/L Microbiology Date/Time Source Procedure Growth Status 08/16/25 10:45 Blood Blood Culture - Preliminary NO GROWTH AFTER 24 HOURS OF INCUBATION. Resulted Assessment pulm htn hypoxia sob htn Plan/Recommendation check stat cta needs pulm eval prabha check bnp consider abg but defer to primary service, only superficial workup done so far check echo iv lasix high risk for decompensation this was a stat consult and pt seen immediately no RN at bedside with me 90 mins critical care time spent Plan discussed with: Patient, Spouse AMPARO FOSTER MD Aug 17, 2025 11:45
[2025-08-17] MEDS: FUROSEMIDE 40 MG/4 ML VIAL IV ONE (12:34)
--- NOTE | 2025-08-17 12:46 | DVH ---
CLINICAL HISTORY: pulm htn, sob TECHNIQUE: CT angiogram of the chest was performed with and without intravenous contrast. 3D reconstructed MIP images were created and archived on the PACS system under concurrent radiologist supervision. This exam was performed according to our departmental dose optimization program. Up-to-date CT equipment and radiation dose reduction techniques are utilized as appropriate. CTDI 11.6 DLP 383 COMPARISON: XY CHEST PORTABLE on DOS: 08/16/25, XY CHEST TWO VIEWS ROUTINE on DOS: 02/01/24, PCP6 on DOS: 03/28/22, CHEST TWO VIEWS ROUTINE on DOS: 08/23/19 FINDINGS: Chest: There was adequate opacification of the pulmonary artery tree. However, evaluation is limited due to image degradation secondary to patient motion. There is no filling defect to suggest acute pulmonary embolism. The thoracic aorta is normal in course and caliber. There are [id number] aortic atherosclerotic calcifications. Heart is mildly enlarged in size with LAD distribution coronary artery calcifications. No pericardial effusion is seen. No enlarged mediastinal, hilar, or axillary lymph node is present. The central airways are patent. There is a 4.7 cm right anterior middle lobe masslike consolidation. There are mild atelectatic changes at both lower lobes. There is a trace right pleural effusion. No left pleural effusion is seen. Other: The visualized upper abdomen is grossly unremarkable. No acute osseous abnormality is identified. IMPRESSION: Limited exam with no evidence for acute pulmonary embolism. No aortic dissection. 4.7 cm right middle lobe masslike consolidation. Differential includes pneumonia and mass. Recommend [address] follow-up after treatment of acute process.
[2025-08-17] MEDS: MORPHINE SULFATE INJ 2 MG/ml SYRG IV PRN (14:04)
--- NOTE | 2025-08-17 14:12 | DVHDS2 ---
Discharge Summary Date of Admission Aug 16, 2025 at 14:14 Date of Discharge: Aug 17, 2025 Admitting Diagnosis Chest pain and shortness of breath Wounds: None Labs/Diagnostic Data: Laboratory Results Test 08/17/25 13:25 08/17/25 05:05 08/16/25 12:05 08/16/25 10:46 D-Dimer, Quantitative 2.20 mg/L FEU (0.0-0.49) Troponin I High Sensitivity 9 ng/L (</=34) White Blood Count 4.5 10^3/uL (4.4-10.8) Red Blood Count 4.34 10^6/uL (4.0-5.20) Hemoglobin 13.4 g/dL (12.2-16.2) Hematocrit 40.4 % (36.0-46.0) Mean Corpuscular Volume 93.0 fL (80.0-100.0) Mean Corpuscular Hemoglobin 30.9 pg (28.0-32.0) Mean Corpuscular Hemoglobin Concent 33.3 g/dL (32.0-36.0) Red Cell Distribution Width 16.2 % (11.8-14.3) Platelet Count 215 10^3/uL (140-450) Mean Platelet Volume 7.8 fL (6.9-10.8) Neutrophils (%) (Auto) 86.6 % (37.0-80.0) Lymphocytes (%) (Auto) 8.1 % (10.0-50.0) Monocytes (%) (Auto) 5.3 % (0.0-12.0) Eosinophils (%) (Auto) 0.0 % (0.0-7.0) Basophils (%) (Auto) 0.0 % (0.0-2.0) Neutrophils # (Auto) 3.9 10 ^3/uL (1.6-8.6) Lymphocytes # (Auto) 0.4 10 ^3/uL (0.4-5.4) Monocytes # (Auto) 0.2 10 ^3/uL (0-1.3) Eosinophils # (Auto) 0 10 ^3/uL (0-0.8) Basophils # (Auto) 0 10 ^3/uL (0-0.2) Nucleated Red Blood Cells 0.1 % Sodium Level 139 mmol/L (136-145) Potassium Level 4.0 mmol/L (3.5-5.1) Chloride Level 104 mmol/L (98-107) Carbon Dioxide Level 23 mmol/L (20-31) Anion Gap 12 (5-15) Blood Urea Nitrogen 11 mg/dL (9-23) Creatinine 0.66 mg/dL (0.550-1.02) Glomerular Filtration Rate Calc 98 mL/min (>90) BUN/Creatinine Ratio 16.7 (10.0-20.0) Serum Glucose 178 mg/dL (74-106) Calcium Level 9.0 mg/dL (8.7-10.4) Total Bilirubin 0.8 mg/dL (0.2-1.0) Aspartate Amino Transferase (AST) 16 U/L (13-40) Alanine Aminotransferase (ALT) 15 U/L (7-40) Alkaline Phosphatase 131 U/L (46-116) B-Type Natriuretic Peptide 384.46 pg/mL (0-100) Total Protein 6.4 g/dL (5.7-8.2) Albumin 3.9 g/dL (3.2-4.8) Urine Color Light-yellow (Yellow) Urine Clarity Clear (Clear) Urine pH 6.5 (5.0-9.0) Urine Specific [place] 1.004 (1.001-1.035) Urine Protein Negative (Negative) Urine Ketones Trace (Negative) Urine Blood Negative /uL (Negative) Urine Nitrite Negative (Negative) Urine Bilirubin Negative (Negative) Urine Urobilinogen Normal mg/dL (Negative) Urine Leukocyte Esterase Negative /uL (Negative) Urine RBC <1 /hpf (0 - 4) Urine Microscopic WBC < 1 /HPF (0-5) Urine Squamous Epithelial Cells Few /hpf (<5) Urine Bacteria None seen /hpf (None Seen) Urine Glucose Normal mg/dL (Normal) Influenza Type A Antigen Negative (Negative) Influenza Type B Antigen Negative (Negative) Test 08/16/25 10:45 08/16/25 10:41 SARS-CoV-2 Antigen (Rapid) Negative (NEGATIVE) Lactic Acid Level 1.3 mmol/L (0.4-2.0) Other Laboratory Tests 08/17/25 05:05 Brief Hx & Hospital Course: 65-year-old female with a history of hypertension history of pulmonary hypertension came in complaining of chest pain and shortness of breaths placed on 4 L of oxygen by nasal cannula troponin negative. Patient was placed on Lasix and Lovenox therapeutic dose. Patient was continued on home medications Cialis and Macitentanio for pulmonary hypertension. Flu test negative COVID test negative. CT chest angiogram with contrast ruled out pulmonary embolism patient has had community-acquired right lower lobe pneumonia treated with the Rocephin azithromycin albuterol Atrovent Solu-Medrol CT chest showed possible right middle lobe mass [address] Baker was consulted who advised transferred to [facility] for higher level of care. Flu test negative COVID test negative general condition poor at the time of transfer but stable Consults/Reason for consult CT angiogram Echocardiogram Operations or Procedures Cardiology Dr. Baker Pulmonary consult for Dr. Flor pending Condition at Discharge: Poor Final Diagnosis/Problems List Chest Pain rule out coronary artery disease, treatment per ACS protocol EKG shows ST depressions in the lateral leads, original troponin negative repeat troponin pending, STAT consult for Dr. Baker Severe pulmonary hypertension: Continue home medications Cialis 40 mg p.o. daily, MACITENTANIO 10 mg p.o. daily Community-acquired right lower lobe Pneumonia Gram-positive versus Gram-negative: Rocephin azithromycin albuterol Atrovent Solu-Medrol History of pulmonary hypertension Hypertension Flu test negative COVID test negative Check D-dimer Check urine drug screen PE ruled out ABG on room air pending Pulmonary consult pending Discharge Disposition: Acute Care Facility Discharge Instruct/Medications Diet: Cardiac 2g Na,low cholest Activity: Light activity Follow Up/Referral: Per receiving hospital Medications: see list Scheduled Amlodipine Besylate (Amlodipine Besylate), 10 MG PO DAILY, (Reported) Amlodipine Besylate (Amlodipine Besylate), 40 MG PO DAILY, (Reported) Aspirin (Aspirin Low Dose), 81 MG PO DAILY, (Reported) Esomeprazole Magnesium Trihydr (Nexium), 1 CAP PO DAILY, (Reported) Esomeprazole Magnesium Trihydr (Nexium), 40 MG PO DAILY, (Reported) Ferrous Sulfate Dried (Feosol), 200 MG PO DAILY Furosemide (Lasix), 40 MG PO DAILY, (Reported) Macitentan (Opsumit), 10 MG PO DAILY, (Reported) Multiple Vitamin (Multivitamins), 1 TAB OR DAILY, (Reported) Potassium Chloride (Klor-Con M10), 10 MEQ PO DAILY, (Reported) Potassium Chloride (Potassium Chloride Cr), 1 TAB PO DAILY, (Reported) Rosuvastatin Calcium (Crestor), 1 TAB PO DAILY, (Reported) Tadalafil (Cialis), 40 MG PO DAILY, (Reported) Discontinued Medications Furosemide (Lasix), 20 MG PO PRN, (Reported) 39 (Time taken for discharge summary 39 minutes) Discharge Statement: "Patient was advised to return to the ER or call 911 if any headaches, dizziness, shortness of breath, chest pain, abdominal pain, bleeding, fevers, or worsening of medical condition. Patient was counseled about treatment plan, medications, possible side effects, patientverbalized understanding. All questions were answered to the best of my ability. This discharge took greater then 30 minutes in planning, reviewing documentation, counseling the patient, and discussing with other team members." ASSESSMENT ASSESSMENT Hospital Course No significant improvement Assessment Chest Pain rule out coronary artery disease, treatment per ACS protocol EKG shows ST depressions in the lateral leads, original troponin negative repeat troponin pending, STAT consult for Dr. Baker Severe pulmonary hypertension: Continue home medications Cialis 40 mg p.o. daily, MACITENTANIO 10 mg p.o. daily Community-acquired right lower lobe Pneumonia Gram-positive versus Gram- negative: Rocephin azithromycin albuterol Atrovent Solu-Medrol History of pulmonary hypertension Hypertension Flu test negative COVID test negative Check D-dimer Check urine drug screen PE ruled out ABG on room air pending Pulmonary consult pending Date of Service: Aug 17, 2025 Billing Provider: BISHOP LEIVA MD Common Visit Codes: 77876-CSS/OBS DISCH DAY >30min BISHOP LEIVA MD Aug 17, 2025 14:12
[2025-08-17 14:37] LABS: Base Excess 0.0 mmol/L (-2.0-3.0)
[2025-08-17 14:51] LABS: Cannabinoid Screen, Urine Pos (NEGATIVE); Phencyclidine Screen, Urine Neg (NEGATIVE)
[2025-08-17 14:52] LABS: Amphetamine Screen, Urine Neg (NEGATIVE); Barbiturate Scree,Urine Neg (NEGATIVE); Benzodiazephine Screen, Urine Neg (NEGATIVE); Cocaine Screen, Urine Neg (NEGATIVE); Opiate Scree,Urine Neg (NEGATIVE)
[2025-08-17] MEDS: ENOXAPARIN SOD 80 MG/0.8ML SYRINGE SC ONE (15:17)
[2025-08-17] MEDS: ENOXAPARIN SOD 80 MG/0.8ML SYRINGE SC SCH (22:00)
[2025-08-18] VITALS (15 sets, daily range): BP systolic 97–119; BP diastolic 64–86; PULSE 78–123; RESP 16–20; TEMP 97.9–98.4; O2SAT 89–97
--- NOTE | 2025-08-18 09:10 | DVHPN2 ---
Reviewed: Care Plan, H&P, Labs, Medications, Previous Orders, Radiology Changes from previous H/P or p: No Changes Eyes: No Pain, No Vision change, No Conjunctivae inflammation, No Eyelid inflammation, No Other, No Redness ENT: No Ear pain, No Ear discharge, No Nose pain, No Nose discharge, No Nose congestion, No Mouth pain, No Mouth swelling, No Throat pain, No Throat swelling, No Other Cardiovascular: No Chest Pain, No Palpitations, No Orthopnea, No Paroxysmal Noc. Dyspnea, No Edema, No Lt Headedness, No Other Respiratory: Cough; No Dry; Shortness of breath, SOB with excertion; No Wheezing, No Hemoptysis, No Pleuritic Pain; Sputum (clear/white); No Other Gastrointestinal: No Nausea, No Vomiting, No Abdominal Pain, No Diarrhea, No Constipation, No Melena, No Hematochezia, No Other Genitourinary: No Dysuria, No Frequency, No Incontinence, No Hematuria, No Retention, No Other Musculoskeletal: No other, No neck pain, No shoulder pain, No arm pain, No back pain, No hand pain, No leg pain, No foot pain Skin: No Rash, No Lesions, No Jaundice, No Bruising, No Other Objective Vitals Vital Signs Date Time Temp Pulse Resp B/P (MAP) Pulse Ox O2 Delivery O2 Flow Rate FiO2 08/18/25 08:50 98.0 118 18 118/86 (97) 94 98.0 08/18/25 06:53 Nasal Cannula* 6 44 Intake/Output Intake and Output 08/18/25 07:00 Intake Total 2100 ml Balance 2100 ml Intake Oral 1800 ml IV Total 300 ml # Voids 14 # Bowel Movements 1 Medications Current Medications Medications Dose Ordered Sig/Solomon Route Start Time Stop Time Status Last Admin Dose Admin Acetaminophen/ Hydrocodone Bitart 1 tab Q4HP PRN PO 08/16/25 14:15 08/18/25 06:56 1 TAB Ondansetron HCl 4 mg Q4HP PRN IV 08/16/25 14:15 Docusate Sodium 100 mg BIDPRN PRN PO 08/16/25 14:15 Acetaminophen 650 mg Q6HP PRN PO 08/16/25 14:15 Methylprednisolone Sodium Succinate 40 mg BID IV 08/16/25 22:00 08/17/25 23:09 40 MG Ipratropium [place] 0.5 mg Q6HWA NEB 08/16/25 18:00 08/18/25 06:53 0.5 MG Albuterol 2.5 mg Q6HWA NEB 08/16/25 18:00 08/18/25 06:53 2.5 MG Ceftriaxone Sodium 50 ml @ 100 mls/hr DAILY@09 IV 08/16/25 14:49 08/17/25 10:37 100 MLS/HR Azithromycin 250 ml @ 125 mls/hr DAILY IV 08/16/25 16:00 08/17/25 12:31 125 MLS/HR Furosemide 40 mg DAILY IV 08/17/25 10:00 Amlodipine Besylate 10 mg DAILY PO 08/17/25 10:00 08/17/25 10:39 10 MG Aspirin 81 mg DAILY PO 08/17/25 10:00 08/17/25 10:38 81 MG Pantoprazole Sodium 40 mg DAILY PO 08/17/25 10:00 08/17/25 10:38 40 MG Patient Own Medication 10 mg DAILY PO 08/17/25 10:00 08/17/25 12:31 10 MG Atorvastatin Calcium 40 mg DAILY PO 08/17/25 10:00 08/17/25 10:39 40 MG Enoxaparin Sodium 70 mg Q12HR SC 08/17/25 22:00 08/17/25 22:00 70 MG Patient Own Medication 40 mg DAILY PO 08/17/25 13:45 08/17/25 14:05 40 MG Morphine Sulfate 2 mg Q4HPRN PRN IV 08/17/25 13:45 08/18/25 04:28 2 MG Laboratory Results Laboratory Tests 08/17/25 05:05 Coagulation Test 08/17/25 13:25 D-Dimer, Quantitative 2.20 mg/L FEU (0.0-0.49) H Urinalysis Test 08/16/25 12:05 Urine Color Light-yellow (Yellow) Urine Clarity Clear (Clear) Urine pH 6.5 (5.0-9.0) Urine Specific [place] 1.004 (1.001-1.035) Urine Protein Negative (Negative) Urine Ketones Trace (Negative) Urine Blood Negative /uL (Negative) Urine Nitrite Negative (Negative) Urine Bilirubin Negative (Negative) Urine Urobilinogen Normal mg/dL (Negative) Urine Leukocyte Esterase Negative /uL (Negative) Urine RBC <1 /hpf (0 - 4) Urine Microscopic WBC < 1 /HPF (0-5) Urine Squamous Epithelial Cells Few /hpf (<5) Urine Bacteria None seen /hpf (None Seen) Urine Glucose Normal mg/dL (Normal) Blood Gas Results Test 08/17/25 14:30 Arterial Blood pH 7.534 (7.350-7.450) FiO2 % 44.0 Microbiology Microbiology Date/Time Source Procedure Growth Status 08/16/25 10:45 Blood Blood Culture - Preliminary NO GROWTH AFTER 24 HOURS OF INCUBATION. Resulted Labs and/or images reviewed: Labs reviewed by me, Image(s) reviewed by me Assessment/Plan Assessment/Plan Chest Pain rule out coronary artery disease, treatment per ACS protocol EKG shows ST depressions in the lateral leads, original troponin negative repeat troponin pending, STAT consult for Dr. Baker appreciated, advised transfer to [facility] for higher level of care Severe pulmonary hypertension: Continue home medications Cialis 40 mg p.o. daily, MACITENTANIO 10 mg p.o. daily Community-acquired right lower lobe Pneumonia Gram-positive versus Gram- negative: Rocephin azithromycin albuterol Atrovent Solu-Medrol History of pulmonary hypertension Hypertension Flu test negative COVID test negative Check D-dimer Check urine drug screen Time spent 50 minutes Patient is full code Advanced care planning time 20 minutes AMMON Teran at bedside services coordinator working on transfer to [facility] Plan discussed with: Patient My Orders Orders - BISHOP LEIVA MD Procedure Category Date Status Time * Cardiology Consult CONS 08/17/25 Transmitted 10:33 Transfer Orders XFER 08/17/25 Transmitted 10:40 Electrocardigram EKG 08/17/25 Logged 10:09 Electrocardigram EKG 08/17/25 Logged 10:23 Electrocardigram EKG 08/17/25 Logged 10:32 Code Status CODE 08/17/25 Transmitted 11:56 *Consult CONS 08/17/25 Transmitted 13:22 Abg W/ Co-Ox RT 08/17/25 Logged 13:37 Morphine Sulfate PHA 08/17/25 In Process Injection 13:45 Abg W/ Co-Ox RT 08/17/25 Logged 14:01 Discharge DISCHARGE 08/17/25 Transmitted 14:03 * [address] Justice CONS 08/18/25 Transmitted Consult Date of Service: Aug 18, 2025 Billing Provider: BISHOP LEIVA MD Common Visit Codes: [id number] INP/OBS CARE(HIGH) BISHOP LEIVA MD Aug 18, 2025 09:09
--- NOTE | 2025-08-18 09:25 | DVHSR ---
APPROVED REPORT EXAM: Two-dimensional and M-mode echocardiogram with Doppler and color Doppler. Blood Pressure: 136/87 mmHg INDICATION Severe pulm htn RISK FACTORS Height: 5'3", Weight: 144 DIMENSIONS LVDd 4.0 (3.8-5.7cm) LA (2D) 2.7 (1.9-4.0cm) Aortic Root 3.5 (2.0-3.7cm) LVDs 2.6 (2.5-4.0cm) LA (MM) (1.9-4.0cm) Aortic Cusp Exc 1.7 (1.5-2.0cm) EF (%) 65.0 (55-70%) Rt. Atrium 6.4 (1.9-4.0cm) Asc. Aorta cm IVSd 1.1 (0.7-1.1cm) RV (D) 4.7 (1.8-2.4cm) PWd 1.3 (0.7-1.1cm) Mitral Valve Mitral Mitral Stenosis E wave 0.62m/s MV Mean GR. mmHg A wave 1.11m/s MV Peak GR. mmHg E/A ratio 0.6 2D MVA cm2 DECEL Time 240ms PRESS 1/2 Time ms Aortic Valve Aortic Valve Aortic Stenosis V1 1.42m/s AO Mean GR. 5mmHg V2 1.81m/s AO Peak GR. 13mmHg LVOT Diameter 1.7 (1.8-2.4cm) Doppler MONI 1.78cm2 Pulmonic Valve V2 1.16m/s Tricuspid Valve TR Velocity 5.17m/s RVSP 122mmHg Conclusion lvef 55% flattened IV septum c/w severe R heart failure severe RV enlargement , dysfunction noted pedunculated circular mass /thrombus noted in RV in multiple views (anticoag starting), this is adjacent ot RV septum near the apex severe rigth atrium enlarged severe tricuspid regurg severe pulm htn, pasp >110 mmhg
[2025-08-18] MEDS: MORPHINE SULFATE 4 MG/ML SYR/VIAL IV PRN (10:27)
--- NOTE | 2025-08-18 11:35 | DVHPN2 ---
Progress Note Date Seen: Aug 18, 2025 Medical Necessity Reason Pt with a Central, PICC or Fol: No Subjective Patient reports: Feels better Other Systems: pt declined AM lasix pt is aware of RV mass for years and this is not new , cta - for PE but pt has mass like consolidation Objective vital signs Vital Sign Date Time Temp Pulse Resp B/P (MAP) Pulse Ox O2 Delivery O2 Flow Rate FiO2 08/18/25 10:57 95 18 110/76 08/18/25 10:00 93 Nasal Cannula 6.0 08/18/25 10:00 44 08/18/25 08:50 98.0 98.0 Total Intake and Output 08/17/25 08/17/25 08/18/25 15:00 23:00 07:00 Intake Total 300 ml 1000 ml 800 ml Balance 300 ml 1000 ml 800 ml medications Current Medications Medications Dose Ordered Sig/Solomon Route Start Time Stop Time Status Last Admin Dose Admin Acetaminophen/ Hydrocodone Bitart 1 tab Q4HP PRN PO 08/16/25 14:15 08/18/25 06:56 1 TAB Ondansetron HCl 4 mg Q4HP PRN IV 08/16/25 14:15 Docusate Sodium 100 mg BIDPRN PRN PO 08/16/25 14:15 Acetaminophen 650 mg Q6HP PRN PO 08/16/25 14:15 Methylprednisolone Sodium Succinate 40 mg BID IV 08/16/25 22:00 08/18/25 09:23 40 MG Ipratropium [place] 0.5 mg Q6HWA [facility] 08/16/25 18:00 08/18/25 06:53 0.5 MG Albuterol 2.5 mg Q6HWA [facility] 08/16/25 18:00 08/18/25 06:53 2.5 MG Ceftriaxone Sodium 50 ml @ 100 mls/hr DAILY@09 IV 08/16/25 14:49 08/18/25 09:25 100 MLS/HR Azithromycin 250 ml @ 125 mls/hr DAILY IV 08/16/25 16:00 08/18/25 10:25 125 MLS/HR Furosemide 40 mg DAILY IV 08/17/25 10:00 Amlodipine Besylate 10 mg DAILY PO 08/17/25 10:00 08/18/25 09:24 10 MG Aspirin 81 mg DAILY PO 08/17/25 10:00 08/18/25 09:26 81 MG Pantoprazole Sodium 40 mg DAILY PO 08/17/25 10:00 08/18/25 09:26 40 MG Patient Own Medication 10 mg DAILY PO 08/17/25 10:00 08/18/25 09:26 10 MG Atorvastatin Calcium 40 mg DAILY PO 08/17/25 10:00 08/18/25 09:25 40 MG Enoxaparin Sodium 70 mg Q12HR SC 08/17/25 22:00 08/18/25 09:25 70 MG Patient Own Medication 40 mg DAILY PO 08/17/25 13:45 08/18/25 09:26 40 MG Morphine Sulfate 2 mg Q4HPRN PRN IV 08/18/25 09:45 08/18/25 10:27 2 MG Examination: GENERAL:Abnormal, HEENT:Abnormal, LUNGS:Abnormal, CVS:Abnormal, ABDOMEN:Abnormal laboratory and microbiology Laboratory Tests 08/17/25 05:05 Test 08/17/25 05:05 Range/Units Serum Glucose 178 H 74-106 mg/dL Microbiology Date/Time Source Procedure Growth Status 08/16/25 10:45 Blood Blood Culture - Preliminary NO GROWTH AFTER 48 HOURS OF INCUBATION. 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 chronic copd hypxoia PNA prognosis is guarded cont iv lasix lovenx for now as pt is new to us and we dont have any [facility] records regarding RV lesion needs repeat imaging at some point for ct--defer to pulmonary tx to higher level center for advanced PH dw pt and family and RN with co Plan discussed with: Patient My Orders My Orders Orders - AMPARO FOSTER MD Procedure Category Date Status Time Ct Angio Chest CT 08/17/25 Resulted Contrast 11:41 Echo 2d Mode Cardiac US 08/17/25 Resulted DOP 11:41 Date of Service: Aug 18, 2025 Billing Provider: AMPARO FOSTER MD Common Visit Codes: NOT BILLABLE AMPARO FOSTER MD Aug 18, 2025 11:35
--- NOTE | 2025-08-18 11:49 | ECG ---
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
--- NOTE | 2025-08-18 11:49 | ECG ---
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
--- NOTE | 2025-08-18 11:50 | ECG ---
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
[2025-08-19] VITALS (17 sets, daily range): BP systolic 104–134; BP diastolic 72–88; PULSE 79–93; RESP 16–21; TEMP 97.4–98.3; O2SAT 90–96
--- NOTE | 2025-08-19 09:36 | DVHPN2 ---
Reviewed: Care Plan, H&P, Labs, Medications, Previous Orders, Radiology Changes from previous H/P or p: No Changes Eyes: No Pain, No Vision change, No Conjunctivae inflammation, No Eyelid inflammation, No Other, No Redness ENT: No Ear pain, No Ear discharge, No Nose pain, No Nose discharge, No Nose congestion, No Mouth pain, No Mouth swelling, No Throat pain, No Throat swelling, No Other Cardiovascular: No Chest Pain, No Palpitations, No Orthopnea, No Paroxysmal Noc. Dyspnea, No Edema, No Lt Headedness, No Other Respiratory: Cough; No Dry; Shortness of breath, SOB with excertion; No Wheezing, No Hemoptysis, No Pleuritic Pain; Sputum (clear/white); No Other Gastrointestinal: No Nausea, No Vomiting, No Abdominal Pain, No Diarrhea, No Constipation, No Melena, No Hematochezia, No Other Genitourinary: No Dysuria, No Frequency, No Incontinence, No Hematuria, No Retention, No Other Musculoskeletal: No other, No neck pain, No shoulder pain, No arm pain, No back pain, No hand pain, No leg pain, No foot pain Skin: No Rash, No Lesions, No Jaundice, No Bruising, No Other Objective Vitals Vital Signs Date Time Temp Pulse Resp B/P (MAP) Pulse Ox O2 Delivery O2 Flow Rate FiO2 08/19/25 06:34 79 18 104/72 08/19/25 06:34 96 08/19/25 06:24 Nasal Cannula 6.0 08/19/25 06:24 44 08/19/25 05:00 98.2 98.2 Intake/Output Intake and Output 08/19/25 07:00 Intake Total 1200 ml Balance 1200 ml Intake Oral 900 ml IV Total 300 ml # Voids 6 # Bowel Movements 1 Medications Current Medications Medications Dose Ordered Sig/Solomon Route Start Time Stop Time Status Last Admin Dose Admin Acetaminophen/ Hydrocodone Bitart 1 tab Q4HP PRN PO 08/16/25 14:15 08/18/25 18:46 1 TAB Ondansetron HCl 4 mg Q4HP PRN IV 08/16/25 14:15 Docusate Sodium 100 mg BIDPRN PRN PO 08/16/25 14:15 Acetaminophen 650 mg Q6HP PRN PO 08/16/25 14:15 Methylprednisolone Sodium Succinate 40 mg BID IV 08/16/25 22:00 08/18/25 21:13 40 MG Ipratropium [place] 0.5 mg Q6HWA NEB 08/16/25 18:00 08/19/25 06:23 0.5 MG Albuterol 2.5 mg Q6HWA NEB 08/16/25 18:00 08/19/25 06:23 2.5 MG Ceftriaxone Sodium 50 ml @ 100 mls/hr DAILY@09 IV 08/16/25 14:49 08/18/25 09:25 100 MLS/HR Azithromycin 250 ml @ 125 mls/hr DAILY IV 08/16/25 16:00 08/18/25 10:25 125 MLS/HR Furosemide 40 mg DAILY IV 08/17/25 10:00 Amlodipine Besylate 10 mg DAILY PO 08/17/25 10:00 08/18/25 09:24 10 MG Aspirin 81 mg DAILY PO 08/17/25 10:00 08/18/25 09:26 81 MG Pantoprazole Sodium 40 mg DAILY PO 08/17/25 10:00 08/18/25 09:26 40 MG Patient Own Medication 10 mg DAILY PO 08/17/25 10:00 08/18/25 09:26 10 MG Atorvastatin Calcium 40 mg DAILY PO 08/17/25 10:00 08/18/25 09:25 40 MG Enoxaparin Sodium 70 mg Q12HR SC 08/17/25 22:00 08/18/25 21:13 70 MG Patient Own Medication 40 mg DAILY PO 08/17/25 13:45 08/18/25 09:26 40 MG Morphine Sulfate 2 mg Q4HPRN PRN IV 08/18/25 09:45 08/19/25 06:34 2 MG Laboratory Results Laboratory Tests 08/17/25 05:05 Urinalysis Test 08/16/25 12:05 Urine Color Light-yellow (Yellow) Urine Clarity Clear (Clear) Urine pH 6.5 (5.0-9.0) Urine Specific [place] 1.004 (1.001-1.035) Urine Protein Negative (Negative) Urine Ketones Trace (Negative) Urine Blood Negative /uL (Negative) Urine Nitrite Negative (Negative) Urine Bilirubin Negative (Negative) Urine Urobilinogen Normal mg/dL (Negative) Urine Leukocyte Esterase Negative /uL (Negative) Urine RBC <1 /hpf (0 - 4) Urine Microscopic WBC < 1 /HPF (0-5) Urine Squamous Epithelial Cells Few /hpf (<5) Urine Bacteria None seen /hpf (None Seen) Urine Glucose Normal mg/dL (Normal) Microbiology Microbiology Date/Time Source Procedure Growth Status 08/16/25 10:45 Blood Blood Culture - Preliminary NO GROWTH AFTER 48 HOURS OF INCUBATION. Resulted Labs and/or images reviewed: Labs reviewed by me, Image(s) reviewed by me Assessment/Plan Assessment/Plan Chest Pain rule out coronary artery disease, treatment per ACS protocol EKG shows ST depressions in the lateral leads, original troponin negative repeat troponin pending, STAT consult for Dr. Baker appreciated, advised transfer to [facility] for higher level of care Severe pulmonary hypertension: Continue home medications Cialis 40 mg p.o. daily, MACITENTANIO 10 mg p.o. daily Community-acquired right lower lobe Pneumonia Gram-positive versus Gram- negative: Rocephin azithromycin albuterol Atrovent Solu-Medrol History of pulmonary hypertension Hypertension Flu test negative COVID test negative Check D-dimer Check urine drug screen Time spent 50 minutes Patient is full code Advanced care planning time 20 minutes Discussed With the patient, family, RN at bedside director pharmacy services working on transfer to [facility] Plan discussed with: Patient My Orders Orders - BISHOP LEIVA MD Procedure Category Date Status Time Morphine Sulfate PHA 08/18/25 In Process Injection 09:45 Imaging Transfer ORDERS 08/18/25 Transmitted Request 11:11 Date of Service: Aug 19, 2025 Billing Provider: BISHOP LEIVA MD Common Visit Codes: [id number] INP/OBS CARE(HIGH) BISHOP LEIVA MD Aug 19, 2025 09:36
[2025-08-20] VITALS (16 sets, daily range): BP systolic 102–136; BP diastolic 68–95; PULSE 75–99; RESP 17–18; TEMP 97.5–98.3; O2SAT 92–96
--- NOTE | 2025-08-20 08:26 | DVHPN2 ---
Reviewed: Care Plan, H&P, Labs, Medications, Previous Orders, Radiology Changes from previous H/P or p: No Changes Eyes: No Pain, No Vision change, No Conjunctivae inflammation, No Eyelid inflammation, No Other, No Redness ENT: No Ear pain, No Ear discharge, No Nose pain, No Nose discharge, No Nose congestion, No Mouth pain, No Mouth swelling, No Throat pain, No Throat swelling, No Other Cardiovascular: No Chest Pain, No Palpitations, No Orthopnea, No Paroxysmal Noc. Dyspnea, No Edema, No Lt Headedness, No Other Respiratory: Cough; No Dry; Shortness of breath, SOB with excertion; No Wheezing, No Hemoptysis, No Pleuritic Pain; Sputum (clear/white); No Other Gastrointestinal: No Nausea, No Vomiting, No Abdominal Pain, No Diarrhea, No Constipation, No Melena, No Hematochezia, No Other Genitourinary: No Dysuria, No Frequency, No Incontinence, No Hematuria, No Retention, No Other Musculoskeletal: No other, No neck pain, No shoulder pain, No arm pain, No back pain, No hand pain, No leg pain, No foot pain Skin: No Rash, No Lesions, No Jaundice, No Bruising, No Other Objective Vitals Vital Signs Date Time Temp Pulse Resp B/P (MAP) Pulse Ox O2 Delivery O2 Flow Rate FiO2 08/20/25 06:22 76 18 114/80 08/20/25 05:50 95 08/20/25 05:43 Nasal Cannula 6.0 08/20/25 05:43 44 08/20/25 05:00 98.3 98.3 Intake/Output Intake and Output 08/20/25 07:00 Intake Total 2100 ml Balance 2100 ml Intake Oral 1800 ml IV Total 300 ml # Voids 3 # Bowel Movements 1 Medications Current Medications Medications Dose Ordered Sig/Solomon Route Start Time Stop Time Status Last Admin Dose Admin Acetaminophen/ Hydrocodone Bitart 1 tab Q4HP PRN PO 08/16/25 14:15 08/19/25 21:20 1 TAB Ondansetron HCl 4 mg Q4HP PRN IV 08/16/25 14:15 Docusate Sodium 100 mg BIDPRN PRN PO 08/16/25 14:15 Acetaminophen 650 mg Q6HP PRN PO 08/16/25 14:15 Methylprednisolone Sodium Succinate 40 mg BID IV 08/16/25 22:00 08/19/25 21:21 40 MG Ipratropium [place] 0.5 mg Q6HWA NEB 08/16/25 18:00 08/20/25 05:43 0.5 MG Albuterol 2.5 mg Q6HWA NEB 08/16/25 18:00 08/20/25 05:43 2.5 MG Ceftriaxone Sodium 50 ml @ 100 mls/hr DAILY@09 IV 08/16/25 14:49 08/19/25 09:48 100 MLS/HR Azithromycin 250 ml @ 125 mls/hr DAILY IV 08/16/25 16:00 08/19/25 11:11 125 MLS/HR Furosemide 40 mg DAILY IV 08/17/25 10:00 Amlodipine Besylate 10 mg DAILY PO 08/17/25 10:00 08/19/25 09:50 10 MG Aspirin 81 mg DAILY PO 08/17/25 10:00 08/19/25 09:49 81 MG Pantoprazole Sodium 40 mg DAILY PO 08/17/25 10:00 08/19/25 09:49 40 MG Patient Own Medication 10 mg DAILY PO 08/17/25 10:00 08/19/25 09:56 10 MG Atorvastatin Calcium 40 mg DAILY PO 08/17/25 10:00 08/19/25 09:49 40 MG Enoxaparin Sodium 70 mg Q12HR SC 08/17/25 22:00 08/19/25 21:21 70 MG Patient Own Medication 40 mg DAILY PO 08/17/25 13:45 08/19/25 09:56 40 MG Morphine Sulfate 2 mg Q4HPRN PRN IV 08/18/25 09:45 08/20/25 05:52 2 MG Laboratory Results Laboratory Tests 08/17/25 05:05 Urinalysis Test 08/16/25 12:05 Urine Color Light-yellow (Yellow) Urine Clarity Clear (Clear) Urine pH 6.5 (5.0-9.0) Urine Specific [place] 1.004 (1.001-1.035) Urine Protein Negative (Negative) Urine Ketones Trace (Negative) Urine Blood Negative /uL (Negative) Urine Nitrite Negative (Negative) Urine Bilirubin Negative (Negative) Urine Urobilinogen Normal mg/dL (Negative) Urine Leukocyte Esterase Negative /uL (Negative) Urine RBC <1 /hpf (0 - 4) Urine Microscopic WBC < 1 /HPF (0-5) Urine Squamous Epithelial Cells Few /hpf (<5) Urine Bacteria None seen /hpf (None Seen) Urine Glucose Normal mg/dL (Normal) Microbiology Microbiology Date/Time Source Procedure Growth Status 08/16/25 10:45 Blood Blood Culture - Preliminary NO GROWTH AFTER 72 HOURS OF INCUBATION. Resulted Labs and/or images reviewed: Labs reviewed by me, Image(s) reviewed by me Assessment/Plan Assessment/Plan Chest Pain rule out coronary artery disease, treatment per ACS protocol EKG shows ST depressions in the lateral leads, original troponin negative repeat troponin pending, STAT consult for Dr. Baker appreciated, advised transfer to [facility] for higher level of care Severe pulmonary hypertension: Continue home medications Cialis 40 mg p.o. daily, MACITENTANIO 10 mg p.o. daily Community-acquired right lower lobe Pneumonia Gram-positive versus Gram- negative: Rocephin azithromycin albuterol Atrovent Solu-Medrol History of pulmonary hypertension Hypertension Flu test negative COVID test negative Check D-dimer Check urine drug screen Time spent 50 minutes Patient is full code Advanced care planning time 20 minutes Discussed With the patient, family, RN at bedside Per social work therapist note: " [facility] transfer center data processing specialist [facility] who stated patient has been accepted under care fo Dr Solis Sayed, pending bed assignment". Plan discussed with: Patient Date of Service: Aug 20, 2025 Billing Provider: BISHOP LEIVA MD Common Visit Codes: [id number] INP/OBS CARE(HIGH) BISHOP LEIVA MD Aug 20, 2025 08:26
[2025-08-20 13:36] LABS: Hematocrit 43.2 % (36.0-46.0); Hemoglobin 14.3 g/dL (12.2-16.2); Mean Corpuscular Hemoglobin 31.1 pg (28.0-32.0); Mean Corpuscular Volume 94.2 fL (80.0-100.0); Nucleated Red Blood Cells % 0.1 %
[2025-08-20 13:50] LABS: Alanine Aminotransferase 23 U/L (7-40); Albumin 4.3 g/dL (3.2-4.8); Alkaline Phosphatase 168 U/L (46-116); Anion Gap 12 (5-15); BUN/Creatinine Ratio 16.7 (10.0-20.0); Bilirubin, Total 0.6 mg/dL (0.2-1.0); Blood Urea Nitrogen 11 mg/dL (9-23); Calcium 9.3 mg/dL (8.7-10.4); Carbon Dioxide 23 mmol/L (20-31); Chloride 105 mmol/L (98-107); Glucose 114 mg/dL (74-106); Potassium 3.5 mmol/L (3.5-5.1); Sodium 140 mmol/L (136-145); Total Protein 7.1 g/dL (5.7-8.2)
[2025-08-21] VITALS (15 sets, daily range): BP systolic 111–133; BP diastolic 70–92; PULSE 77–91; RESP 16–22; TEMP 97.4–99.7; O2SAT 92–96
--- NOTE | 2025-08-21 07:51 | DVHPN2 ---
Progress Note Date Seen: Aug 21, 2025 Medical Necessity Reason Pt with a Central, PICC or Fol: No Objective vital signs Vital Sign Date Time Temp Pulse Resp B/P (MAP) Pulse Ox O2 Delivery O2 Flow Rate FiO2 08/21/25 06:54 77 16 96 08/21/25 06:48 Nasal Cannula* 6 44 08/21/25 06:29 124/74 08/21/25 05:00 98.0 98.0 Total Intake and Output 08/20/25 08/20/25 08/21/25 15:00 23:00 07:00 Intake Total 650 ml 200 ml Balance 650 ml 200 ml medications Current Medications Medications Dose Ordered Sig/Solomon Route Start Time Stop Time Status Last Admin Dose Admin Acetaminophen/ Hydrocodone Bitart 1 tab Q4HP PRN PO 08/16/25 14:15 08/19/25 21:20 1 TAB Ondansetron HCl 4 mg Q4HP PRN IV 08/16/25 14:15 Docusate Sodium 100 mg BIDPRN PRN PO 08/16/25 14:15 Acetaminophen 650 mg Q6HP PRN PO 08/16/25 14:15 Methylprednisolone Sodium Succinate 40 mg BID IV 08/16/25 22:00 08/20/25 21:48 40 MG Ipratropium [place] 0.5 mg Q6HWA [facility] 08/16/25 18:00 08/21/25 06:47 0.5 MG Albuterol 2.5 mg Q6HWA [facility] 08/16/25 18:00 08/21/25 06:47 2.5 MG Ceftriaxone Sodium 50 ml @ 100 mls/hr DAILY@09 IV 08/16/25 14:49 08/20/25 09:01 100 MLS/HR Azithromycin 250 ml @ 125 mls/hr DAILY IV 08/16/25 16:00 08/20/25 09:50 125 MLS/HR Furosemide 40 mg DAILY IV 08/17/25 10:00 Amlodipine Besylate 10 mg DAILY PO 08/17/25 10:00 08/20/25 09:49 10 MG Aspirin 81 mg DAILY PO 08/17/25 10:00 08/20/25 09:02 81 MG Pantoprazole Sodium 40 mg DAILY PO 08/17/25 10:00 08/20/25 09:03 40 MG Patient Own Medication 10 mg DAILY PO 08/17/25 10:00 08/20/25 09:04 10 MG Atorvastatin Calcium 40 mg DAILY PO 08/17/25 10:00 08/20/25 09:02 40 MG Enoxaparin Sodium 70 mg Q12HR SC 08/17/25 22:00 08/19/25 21:21 70 MG Patient Own Medication 40 mg DAILY PO 08/17/25 13:45 08/20/25 09:04 40 MG Morphine Sulfate 2 mg Q4HPRN PRN IV 08/18/25 09:45 08/21/25 05:59 2 MG Examination: GENERAL:Abnormal, HEENT:Abnormal, LUNGS:Abnormal, CVS:Abnormal, ABDOMEN:Abnormal laboratory and microbiology Laboratory Tests 08/20/25 12:50 Test 08/20/25 12:50 Range/Units Serum Glucose 114 H 74-106 mg/dL Microbiology Date/Time Source Procedure Growth Status 08/16/25 10:45 Blood Blood Culture - Preliminary NO GROWTH AFTER 72 HOURS OF INCUBATION. 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 chronic copd hypxoia PNA prognosis is guarded cont iv lasix lovenx for now as pt is new to us and we dont have any [facility] records regarding RV lesion needs repeat imaging at some point for ct--defer to pulmonary tx to higher level center for advanced PH dw pt and family and RN with me try to wean down o2 home o2 pt agrees to lasix which is necessary Plan discussed with: Patient Date of Service: Aug 21, 2025 Billing Provider: AMPARO FOSTER MD Common Visit Codes: NOT BILLABLE AMPARO FOSTER MD Aug 21, 2025 07:51
--- NOTE | 2025-08-21 10:47 | DVHPN2 ---
Reviewed: Care Plan, H&P, Labs, Medications, Previous Orders, Radiology Changes from previous H/P or p: No Changes Eyes: No Pain, No Vision change, No Conjunctivae inflammation, No Eyelid inflammation, No Other, No Redness ENT: No Ear pain, No Ear discharge, No Nose pain, No Nose discharge, No Nose congestion, No Mouth pain, No Mouth swelling, No Throat pain, No Throat swelling, No Other Cardiovascular: No Chest Pain, No Palpitations, No Orthopnea, No Paroxysmal Noc. Dyspnea, No Edema, No Lt Headedness, No Other Respiratory: Cough; No Dry; Shortness of breath, SOB with excertion; No Wheezing, No Hemoptysis, No Pleuritic Pain; Sputum (clear/white); No Other Gastrointestinal: No Nausea, No Vomiting, No Abdominal Pain, No Diarrhea, No Constipation, No Melena, No Hematochezia, No Other Genitourinary: No Dysuria, No Frequency, No Incontinence, No Hematuria, No Retention, No Other Musculoskeletal: No other, No neck pain, No shoulder pain, No arm pain, No back pain, No hand pain, No leg pain, No foot pain Skin: No Rash, No Lesions, No Jaundice, No Bruising, No Other Objective Vitals Vital Signs Date Time Temp Pulse Resp B/P (MAP) Pulse Ox O2 Delivery O2 Flow Rate FiO2 08/21/25 10:00 94 Nasal Cannula 6.0 08/21/25 10:00 44 08/21/25 09:13 132/65 08/21/25 09:00 97.7 91 22 97.7 Intake/Output Intake and Output 08/21/25 07:00 Intake Total 850 ml Balance 850 ml Intake Oral 850 ml # Voids 7 # Bowel Movements 1 Medications Current Medications Medications Dose Ordered Sig/Solomon Route Start Time Stop Time Status Last Admin Dose Admin Acetaminophen/ Hydrocodone Bitart 1 tab Q4HP PRN PO 08/16/25 14:15 08/19/25 21:20 1 TAB Ondansetron HCl 4 mg Q4HP PRN IV 08/16/25 14:15 Docusate Sodium 100 mg BIDPRN PRN PO 08/16/25 14:15 Acetaminophen 650 mg Q6HP PRN PO 08/16/25 14:15 Methylprednisolone Sodium Succinate 40 mg BID IV 08/16/25 22:00 08/21/25 09:11 40 MG Ipratropium [place] 0.5 mg Q6HWA NEB 08/16/25 18:00 08/21/25 06:47 0.5 MG Albuterol 2.5 mg Q6HWA NEB 08/16/25 18:00 08/21/25 06:47 2.5 MG Ceftriaxone Sodium 50 ml @ 100 mls/hr DAILY@09 IV 08/16/25 14:49 08/21/25 09:05 100 MLS/HR Azithromycin 250 ml @ 125 mls/hr DAILY IV 08/16/25 16:00 08/21/25 10:23 125 MLS/HR Furosemide 40 mg DAILY IV 08/17/25 10:00 Amlodipine Besylate 10 mg DAILY PO 08/17/25 10:00 08/21/25 09:13 10 MG Aspirin 81 mg DAILY PO 08/17/25 10:00 08/21/25 09:12 81 MG Pantoprazole Sodium 40 mg DAILY PO 08/17/25 10:00 08/21/25 09:12 40 MG Patient Own Medication 10 mg DAILY PO 08/17/25 10:00 08/21/25 09:13 10 MG Atorvastatin Calcium 40 mg DAILY PO 08/17/25 10:00 08/21/25 09:12 40 MG Enoxaparin Sodium 70 mg Q12HR SC 08/17/25 22:00 08/19/25 21:21 70 MG Patient Own Medication 40 mg DAILY PO 08/17/25 13:45 08/21/25 09:13 40 MG Morphine Sulfate 2 mg Q4HPRN PRN IV 08/18/25 09:45 08/21/25 05:59 2 MG Laboratory Results Laboratory Tests 08/20/25 12:50 Chemistry Test 08/20/25 12:50 Albumin 4.3 g/dL (3.2-4.8) Calcium Level 9.3 mg/dL (8.7-10.4) Total Protein 7.1 g/dL (5.7-8.2) LFT Test 08/20/25 12:50 Alanine Aminotransferase (ALT) 23 U/L (7-40) Alkaline Phosphatase 168 U/L (46-116) H Aspartate Amino Transferase (AST) 47 U/L (13-40) H Total Bilirubin 0.6 mg/dL (0.2-1.0) Urinalysis Test 08/16/25 12:05 Urine Color Light-yellow (Yellow) Urine Clarity Clear (Clear) Urine pH 6.5 (5.0-9.0) Urine Specific [place] 1.004 (1.001-1.035) Urine Protein Negative (Negative) Urine Ketones Trace (Negative) Urine Blood Negative /uL (Negative) Urine Nitrite Negative (Negative) Urine Bilirubin Negative (Negative) Urine Urobilinogen Normal mg/dL (Negative) Urine Leukocyte Esterase Negative /uL (Negative) Urine RBC <1 /hpf (0 - 4) Urine Microscopic WBC < 1 /HPF (0-5) Urine Squamous Epithelial Cells Few /hpf (<5) Urine Bacteria None seen /hpf (None Seen) Urine Glucose Normal mg/dL (Normal) Microbiology Microbiology Date/Time Source Procedure Growth Status 08/16/25 10:45 Blood Blood Culture - Preliminary NO GROWTH AFTER 72 HOURS OF INCUBATION. Resulted Labs and/or images reviewed: Labs reviewed by me, Image(s) reviewed by me Assessment/Plan Assessment/Plan Acute hypoxic respiratory failure still requiring 5 L of oxygen by nasal cannula Chest Pain rule out coronary artery disease, treatment per ACS protocol EKG shows ST depressions in the lateral leads, original troponin negative repeat troponin pending, STAT consult for Dr. Baker appreciated, advised transfer to [facility] for higher level of care Severe pulmonary hypertension: Continue home medications Cialis 40 mg p.o. daily, MACITENTANIO 10 mg p.o. daily Community-acquired right lower lobe Pneumonia Gram-positive versus Gram- negative: Rocephin azithromycin albuterol Atrovent Solu-Medrol History of pulmonary hypertension Hypertension Flu test negative COVID test negative Check D-dimer Check urine drug screen Time spent 50 minutes Patient is full code Advanced care planning time 20 minutes Discussed With the patient, family, RN at bedside Per social worker assistant note: " [facility] transfer center mapping specialist [facility] [place] who stated patient has been accepted under care fo Dr Solis Sayed, pending bed assignment". Plan discussed with: Patient Date of Service: Aug 21, 2025 Billing Provider: BISHOP LEIVA MD Common Visit Codes: [id number] INP/OBS CARE(HIGH) BISHOP LEIVA MD Aug 21, 2025 10:47
[2025-08-22] VITALS (13 sets, daily range): BP systolic 105–150; BP diastolic 69–94; PULSE 67–99; RESP 16–20; TEMP 97.5–98.8; O2SAT 91–97
--- NOTE | 2025-08-22 07:56 | DVHPN2 ---
Reviewed: Care Plan, H&P, Labs, Medications, Previous Orders, Radiology Changes from previous H/P or p: No Changes Eyes: No Pain, No Vision change, No Conjunctivae inflammation, No Eyelid inflammation, No Other, No Redness ENT: No Ear pain, No Ear discharge, No Nose pain, No Nose discharge, No Nose congestion, No Mouth pain, No Mouth swelling, No Throat pain, No Throat swelling, No Other Cardiovascular: No Chest Pain, No Palpitations, No Orthopnea, No Paroxysmal Noc. Dyspnea, No Edema, No Lt Headedness, No Other Respiratory: Cough; No Dry; Shortness of breath, SOB with excertion; No Wheezing, No Hemoptysis, No Pleuritic Pain; Sputum (clear/white); No Other Gastrointestinal: No Nausea, No Vomiting, No Abdominal Pain, No Diarrhea, No Constipation, No Melena, No Hematochezia, No Other Genitourinary: No Dysuria, No Frequency, No Incontinence, No Hematuria, No Retention, No Other Musculoskeletal: No other, No neck pain, No shoulder pain, No arm pain, No back pain, No hand pain, No leg pain, No foot pain Skin: No Rash, No Lesions, No Jaundice, No Bruising, No Other Objective Vitals Vital Signs Date Time Temp Pulse Resp B/P (MAP) Pulse Ox O2 Delivery O2 Flow Rate FiO2 08/22/25 05:34 87 18 116/80 08/22/25 05:00 97.5 93 97.5 08/21/25 20:00 Nasal Cannula* 5 40 Intake/Output Intake and Output 08/22/25 07:00 Intake Total 1340 ml Balance 1340 ml Intake Oral 1040 ml IV Total 300 ml # Voids 6 Medications Current Medications Medications Dose Ordered Sig/Solomon Route Start Time Stop Time Status Last Admin Dose Admin Acetaminophen/ Hydrocodone Bitart 1 tab Q4HP PRN PO 08/16/25 14:15 08/19/25 21:20 1 TAB Ondansetron HCl 4 mg Q4HP PRN IV 08/16/25 14:15 Docusate Sodium 100 mg BIDPRN PRN PO 08/16/25 14:15 Acetaminophen 650 mg Q6HP PRN PO 08/16/25 14:15 Methylprednisolone Sodium Succinate 40 mg BID IV 08/16/25 22:00 08/21/25 21:20 40 MG Ipratropium [place] 0.5 mg Q6HWA NEB 08/16/25 18:00 08/21/25 18:31 0.5 MG Albuterol 2.5 mg Q6HWA NEB 08/16/25 18:00 08/21/25 18:31 2.5 MG Ceftriaxone Sodium 50 ml @ 100 mls/hr DAILY@09 IV 08/16/25 14:49 08/21/25 09:05 100 MLS/HR Azithromycin 250 ml @ 125 mls/hr DAILY IV 08/16/25 16:00 08/21/25 10:23 125 MLS/HR Furosemide 40 mg DAILY IV 08/17/25 10:00 Amlodipine Besylate 10 mg DAILY PO 08/17/25 10:00 08/21/25 09:13 10 MG Aspirin 81 mg DAILY PO 08/17/25 10:00 08/21/25 09:12 81 MG Pantoprazole Sodium 40 mg DAILY PO 08/17/25 10:00 08/21/25 09:12 40 MG Patient Own Medication 10 mg DAILY PO 08/17/25 10:00 08/21/25 09:13 10 MG Atorvastatin Calcium 40 mg DAILY PO 08/17/25 10:00 08/21/25 09:12 40 MG Enoxaparin Sodium 70 mg Q12HR SC 08/17/25 22:00 08/19/25 21:21 70 MG Patient Own Medication 40 mg DAILY PO 08/17/25 13:45 08/21/25 09:13 40 MG Morphine Sulfate 2 mg Q4HPRN PRN IV 08/18/25 09:45 08/22/25 05:04 2 MG Laboratory Results Laboratory Tests 08/20/25 12:50 Urinalysis Test 08/16/25 12:05 Urine Color Light-yellow (Yellow) Urine Clarity Clear (Clear) Urine pH 6.5 (5.0-9.0) Urine Specific [place] 1.004 (1.001-1.035) Urine Protein Negative (Negative) Urine Ketones Trace (Negative) Urine Blood Negative /uL (Negative) Urine Nitrite Negative (Negative) Urine Bilirubin Negative (Negative) Urine Urobilinogen Normal mg/dL (Negative) Urine Leukocyte Esterase Negative /uL (Negative) Urine RBC <1 /hpf (0 - 4) Urine Microscopic WBC < 1 /HPF (0-5) Urine Squamous Epithelial Cells Few /hpf (<5) Urine Bacteria None seen /hpf (None Seen) Urine Glucose Normal mg/dL (Normal) Microbiology Microbiology Date/Time Source Procedure Growth Status 08/16/25 10:45 Blood Blood Culture - Final NO GROWTH AFTER 5 DAYS OF INCUBATION. Complete Labs and/or images reviewed: Labs reviewed by me, Image(s) reviewed by me Assessment/Plan Assessment/Plan Acute hypoxic respiratory failure still requiring 5 L of oxygen by nasal cannula Chest Pain rule out coronary artery disease, treatment per ACS protocol EKG shows ST depressions in the lateral leads, original troponin negative repeat troponin pending, STAT consult for Dr. Baker appreciated, advised transfer to [facility] for higher level of care Severe pulmonary hypertension: Continue home medications Cialis 40 mg p.o. daily, MACITENTANIO 10 mg p.o. daily Community-acquired right lower lobe Pneumonia Gram-positive versus Gram- negative: Rocephin azithromycin albuterol Atrovent Solu-Medrol History of pulmonary hypertension Hypertension Flu test negative COVID test negative Check D-dimer Check urine drug screen Time spent 50 minutes Patient is full code Advanced care planning time 20 minutes Discussed With the patient, family, RN at bedside Per psychotherapist social worker note: " [facility] transfer center mortgage protection specialist [facility] [place] who stated patient has been accepted under care fo Dr Solis Sayed, pending bed assignment". RN Duc at bedside Patient is still on 5 L of oxygen and complaining of shortness of breath Plan discussed with: Patient Date of Service: Aug 22, 2025 Billing Provider: BISHOP LEIVA MD Common Visit Codes: [id number] INP/OBS CARE(HIGH) BISHOP LEIVA MD Aug 22, 2025 07:56
[2025-08-23] VITALS (17 sets, daily range): BP systolic 100–122; BP diastolic 62–91; PULSE 17–88; RESP 16–20; TEMP 97.5–99.1; O2SAT 90–97
[2025-08-23] MEDS: IOHEXOL 350 MG/ML 100ML IJ ONE (00:38)
--- NOTE | 2025-08-23 10:37 | DVHPN2 ---
Reviewed: Care Plan, H&P, Labs, Medications, Previous Orders, Radiology Changes from previous H/P or p: No Changes Eyes: No Pain, No Vision change, No Conjunctivae inflammation, No Eyelid inflammation, No Other, No Redness ENT: No Ear pain, No Ear discharge, No Nose pain, No Nose discharge, No Nose congestion, No Mouth pain, No Mouth swelling, No Throat pain, No Throat swelling, No Other Cardiovascular: No Chest Pain, No Palpitations, No Orthopnea, No Paroxysmal Noc. Dyspnea, No Edema, No Lt Headedness, No Other Respiratory: Cough; No Dry; Shortness of breath, SOB with excertion; No Wheezing, No Hemoptysis, No Pleuritic Pain; Sputum (clear/white); No Other Gastrointestinal: No Nausea, No Vomiting, No Abdominal Pain, No Diarrhea, No Constipation, No Melena, No Hematochezia, No Other Genitourinary: No Dysuria, No Frequency, No Incontinence, No Hematuria, No Retention, No Other Musculoskeletal: No other, No neck pain, No shoulder pain, No arm pain, No back pain, No hand pain, No leg pain, No foot pain Skin: No Rash, No Lesions, No Jaundice, No Bruising, No Other Objective Vitals Vital Signs Date Time Temp Pulse Resp B/P (MAP) Pulse Ox O2 Delivery O2 Flow Rate FiO2 08/23/25 09:40 117/76 08/23/25 07:18 73 18 96 08/23/25 07:12 Nasal Cannula* 5 40 08/23/25 05:00 97.6 97.6 Intake/Output Intake and Output 08/23/25 07:00 Intake Total 1750 ml Balance 1750 ml Intake Oral 1450 ml IV Total 300 ml # Voids 5 Medications Current Medications Medications Dose Ordered Sig/Solomon Route Start Time Stop Time Status Last Admin Dose Admin Acetaminophen/ Hydrocodone Bitart 1 tab Q4HP PRN PO 08/16/25 14:15 08/23/25 10:35 1 TAB Ondansetron HCl 4 mg Q4HP PRN IV 08/16/25 14:15 Docusate Sodium 100 mg BIDPRN PRN PO 08/16/25 14:15 Acetaminophen 650 mg Q6HP PRN PO 08/16/25 14:15 Methylprednisolone Sodium Succinate 40 mg BID IV 08/16/25 22:00 08/23/25 09:39 40 MG Ipratropium [place] 0.5 mg Q6HWA NEB 08/16/25 18:00 08/23/25 07:12 0.5 MG Albuterol 2.5 mg Q6HWA NEB 08/16/25 18:00 08/23/25 07:12 2.5 MG Ceftriaxone Sodium 50 ml @ 100 mls/hr DAILY@09 IV 08/16/25 14:49 08/23/25 09:39 100 MLS/HR Azithromycin 250 ml @ 125 mls/hr DAILY IV 08/16/25 16:00 08/22/25 11:22 125 MLS/HR Furosemide 40 mg DAILY IV 08/17/25 10:00 08/23/25 09:39 40 MG Amlodipine Besylate 10 mg DAILY PO 08/17/25 10:00 08/23/25 09:40 10 MG Aspirin 81 mg DAILY PO 08/17/25 10:00 08/23/25 09:40 81 MG Pantoprazole Sodium 40 mg DAILY PO 08/17/25 10:00 08/23/25 09:40 40 MG Patient Own Medication 10 mg DAILY PO 08/17/25 10:00 08/23/25 09:41 10 MG Atorvastatin Calcium 40 mg DAILY PO 08/17/25 10:00 08/23/25 09:40 40 MG Enoxaparin Sodium 70 mg Q12HR SC 08/17/25 22:00 08/19/25 21:21 70 MG Patient Own Medication 40 mg DAILY PO 08/17/25 13:45 08/23/25 09:41 40 MG Morphine Sulfate 2 mg Q4HPRN PRN IV 08/18/25 09:45 08/23/25 04:33 2 MG Laboratory Results Laboratory Tests 08/20/25 12:50 Urinalysis Test 08/16/25 12:05 Urine Color Light-yellow (Yellow) Urine Clarity Clear (Clear) Urine pH 6.5 (5.0-9.0) Urine Specific [place] 1.004 (1.001-1.035) Urine Protein Negative (Negative) Urine Ketones Trace (Negative) Urine Blood Negative /uL (Negative) Urine Nitrite Negative (Negative) Urine Bilirubin Negative (Negative) Urine Urobilinogen Normal mg/dL (Negative) Urine Leukocyte Esterase Negative /uL (Negative) Urine RBC <1 /hpf (0 - 4) Urine Microscopic WBC < 1 /HPF (0-5) Urine Squamous Epithelial Cells Few /hpf (<5) Urine Bacteria None seen /hpf (None Seen) Urine Glucose Normal mg/dL (Normal) Microbiology Microbiology Date/Time Source Procedure Growth Status 08/16/25 10:45 Blood Blood Culture - Final NO GROWTH AFTER 5 DAYS OF INCUBATION. Complete Labs and/or images reviewed: Labs reviewed by me, Image(s) reviewed by me Assessment/Plan Assessment/Plan Acute hypoxic respiratory failure still requiring 5 L of oxygen by nasal cannula Chest Pain rule out coronary artery disease, treatment per ACS protocol EKG shows ST depressions in the lateral leads, original troponin negative repeat troponin pending, STAT consult for Dr. Baker appreciated, advised transfer to [facility] for higher level of care Severe pulmonary hypertension: Continue home medications Cialis 40 mg p.o. daily, MACITENTANIO 10 mg p.o. daily Community-acquired right lower lobe Pneumonia Gram-positive versus Gram- negative: Rocephin azithromycin albuterol Atrovent Solu-Medrol History of pulmonary hypertension Hypertension Flu test negative COVID test negative Check D-dimer Check urine drug screen Time spent 50 minutes Patient is full code Advanced care planning time 20 minutes Discussed With the patient, family, RN at bedside Per foster care social worker note: " [facility] transfer center graphic specialist [facility] [place] who stated patient has been accepted under care fo Dr Solis Sayed, pending bed assignment". AMMON Sosa at bedside Patient is still on 4 L of oxygen and complaining of shortness of breath Plan discussed with: Patient Date of Service: Aug 23, 2025 Billing Provider: BISHOP LEIVA MD Common Visit Codes: [id number] INP/OBS CARE(HIGH) BISHOP LEIVA MD Aug 23, 2025 10:37
== END 2025-08-23 20:47 | disposition short-term general hospital (02) | DRG 177 ==
LOC: ER 10:00 → OVERFLOW 14:14 → CENTRAL 15:49 → TELE-CENTR 08-18 08:46 → TELE-EAST 08-22 10:30
PROVIDERS: ADMIT Family Medicine; ATTEND Family Medicine
DX: J15.69 Pneumonia due to other Gram-negative bacteria (principal); I50.31 Acute diastolic (congestive) heart failure; J96.01 Acute respiratory failure with hypoxia; I11.0 Hypertensive heart disease with heart failure; J44.0 Chronic obstructive pulmonary disease with (acute) lower respiratory infection; J15.9 Unspecified bacterial pneumonia; I25.10 Atherosclerotic heart disease of native coronary artery without angina pectoris; J98.4 Other disorders of lung; Z20.822 Contact with and (suspected) exposure to COVID-19; Z82.49 Family history of ischemic heart disease and other diseases of the circulatory system; Z80.0 Family history of malignant neoplasm of digestive organs
CPT/HCPCS: 36415; 36600; 71045; 71275; 80053; 80307; 81001; 82805; 83605; 83880; 84484; 85025; 85379; 87040; 87426; 87804; 93005; 93306; 94640; 99291; 99292; G0378